=== PATIENT | female | born 1955 | race Caucasian/White ===

== ENCOUNTER → 2017-04-24 | Outpatient (CLI) | payer MEDICARE, MEDICAID ==
--- NOTE | 2017-04-24 17:16 | WOMENS IMAGING REPORT ---
EXAM DESCRIPTION: 3D SCREENING MAMMO BILAT COMPLETED DATE/TIME: 04/24/2017 4:35 pm REASON FOR STUDY: Z12.31, ROUTINE SCREENING MAMMO (3D) Z12.31 ENCNTR SCREEN MAMMOGRAM FOR MALIGNANT NEOPLASM OF DESTINY COMPARISON: Multiple since 2011 TECHNIQUE: Standard craniocaudal and mediolateral oblique views of each breast recorded using digita l acquisition and breast tomosynthesis. LIMITATIONS: None. FINDINGS: Findings present which are benign by mammographic criteria. No suspicious masses, calcifi cations or architectural distortion. Pertinent benign findings: Stable right breast intramammary lymph node, bilateral breast parenchymal and vascular calcifications. Read with the assistance of CAD. [facility] - R2 Cenova Version 1.3 .[facility] Imaging - R2 Cenova Version 1.3 .[facility] Imaging - R2 Cenova Version 2.4 .[facility] [place] - R2 Cenova Version 2.4 .[facility] - R2 Pres[employer] Engineer Version 9.2 Benign mammographic findings may include one or more of the following: Smooth masses, popcorn/rim/co arse calcifications, asymmetries, post-procedure changes, and lesions with long-standing stability. IMPRESSION: BENIGN MAMMOGRAPHIC FINDINGS. BIRADS 2 BREAST DENSITY: b. There are scattered areas of fibroglandular density. BIRAD: 2 BENIGN FINDING(S) RECOMMENDATION: RECOMMENDATION: ROUTINE SCREENING COMMENT: The patient has been notified of the results by letter per SA requirements. Additional no tification policies are in place for contacting patient with suspicious or incomplete findings. Quality ID #[id number]: The [employer] recommends an annual screening mammogram for women aged 40 years or over. This facility utilizes a reminder system to ensure that all patients receive reminder letters, and/or direct phone calls for appointments. This includes reminders for routine scr eening mammograms, diagnostic mammograms, or other Breast Imaging Interventions when appropriate. Th is patient will be placed in the appropriate reminder system. The [employer] (ACR) has developed recommendations for screening MRI of the breast s in certain patient populations, to be used in conjunction with mammography. Breast MRI surveillanc e may be appropriate for women with more than 20% lifetime risk of developing breast cancer as deter mined by genetic testing, significant family history of the disease, or history of mantle radiation f or Hodgkins Disease. ACR Practice Guidelines 2008. DBT Technology DBT is a type of tomographic mammography. With conventional mammography, overlapping breast tissue ma y make lesions difficult to detect, even with good compression. DBT uses an x-ray tube that rotates a round the breast, taking images at different angles. These images are then combined to create thin sl ices of the breast that the radiologist can view as a 3D reconstruction. The [employer] unit can perform full-field digital mammograms (2D imaging); or DBT (3D imaging); or both, in a combination mode that quickly performs both the mammogram and the tomosynthesis scan while the breast is still compressed. PQRS 6045F: Fluoroscopic imaging is not utilized for breast tomosynthesis. TECHNICAL DOCUMENTATION: FINDING NUMBER: (1) ASSESSMENT: (1) JOB ID: [id number] [employer]- All Rights Reserved
== END ==
LOC: WI 13:30
PROVIDERS: ATTEND Physician Assistant
DX: Z12.31 Encounter for screening mammogram for malignant neoplasm of breast (principal)
CPT/HCPCS: 77063; G0202; 77067

== ENCOUNTER → 2018-04-24 | Outpatient (CLI) | payer MEDICARE, MEDICAID ==
--- NOTE | 2018-04-24 10:23 | WOMENS IMAGING REPORT ---
EXAM DESCRIPTION: 3D SCREENING MAMMO BILAT COMPLETED DATE/TIME: 04/24/2018 10:08 am REASON FOR STUDY: SCREENING MAMMO Z12.31 ENCNTR SCREEN MAMMOGRAM FOR MALIGNANT NEOPLASM OF DESTINY COMPARISON: Multiple since 2011 TECHNIQUE: Standard craniocaudal and mediolateral oblique views of each breast recorded using digita l acquisition and breast tomosynthesis. LIMITATIONS: None. FINDINGS: No masses, calcifications or architectural distortion. No areas of suspicion. Read with the assistance of CAD. .[facility] - R2 Cenova Version 1.3 .[facility] Imaging - R2 Cenova Version 1.3 .[facility] Imaging - R2 Cenova Version 2.4 .[facility] [place] R2 Cenova Version 2.4 .[facility] - R2 [employer] Supervisor Version 9.2 IMPRESSION: NORMAL MAMMOGRAM. BIRADS 1. BREAST DENSITY: a. The breasts are almost entirely fatty. BIRAD: 1 NEGATIVE RECOMMENDATION: ROUTINE SCREENING Please continue yearly bilateral screening mammography/tomosynthesis in April 2019 COMMENT: The patient has been notified of the results by letter per MQSA requirements. Additional no tification policies are in place for contacting patient with suspicious or incomplete findings. Quality ID #[id number]: The [employer] recommends an annual screening mammogram for women aged 40 years or over. This facility utilizes a reminder system to ensure that all patients receive reminder letters, and/or direct phone calls for appointments. This includes reminders for routine scr eening mammograms, diagnostic mammograms, or other Breast Imaging Interventions when appropriate. Th is patient will be placed in the appropriate reminder system. The [employer] (ACR) has developed recommendations for screening MRI of the breast s in certain patient populations, to be used in conjunction with mammography. Breast MRI surveillanc e may be appropriate for women with more than 20% lifetime risk of developing breast cancer as deter mined by genetic testing, significant family history of the disease, or history of mantle radiation f or Hodgkins Disease. ACR Practice Guidelines 2008. DBT Technology DBT is a type of tomographic mammography. With conventional mammography, overlapping breast tissue ma y make lesions difficult to detect, even with good compression. DBT uses an x-ray tube that rotates a round the breast, taking images at different angles. These images are then combined to create thin sl ices of the breast that the radiologist can view as a 3D reconstruction. The [employer] unit can perform full-field digital mammograms (2D imaging); or DBT (3D imaging); or both, in a combination mode that quickly performs both the mammogram and the tomosynthesis scan while the breast is still compressed. PQRS 6045F: Fluoroscopic imaging is not utilized for breast tomosynthesis. TECHNICAL DOCUMENTATION: FINDING NUMBER: (1) ASSESSMENT: (1) JOB ID: [id number] [email or web address]- All Rights Reserved Reading location - IP/workstation name: [email or web address]
== END ==
LOC: WI 10:20
PROVIDERS: ATTEND Physician Assistant
DX: Z12.31 Encounter for screening mammogram for malignant neoplasm of breast (principal)
CPT/HCPCS: 77063; 77067

== ENCOUNTER 2018-06-14 20:25 | Emergency (ER) | payer MEDICARE, MEDICAID ==
[2018-06-14] MEDS ORDERED: DIPHENHYDRAMINE HCL 50 MG/ML VIAL IV ONE (22:31)
[2018-06-14 22:58] LABS: ABSOLUTE BASOPHILS # (AUTO) 0.1 10^3/uL (0.0-0.2); ABSOLUTE LYMPHOCYTES (AUTO) 3.3 10^3/uL (0.5-4.7); ABSOLUTE MONOCYTES (AUTO) 0.6 10^3/uL (0.1-1.4); ABSOLUTE NEUT (AUTO) 5.4 10^3/uL (1.7-8.2); BASOPHILS % (AUTO) 0.7 % (0-2); EOSINOPHILS % (AUTO) 0.2 % (0-6); HEMATOCRIT 39.3 % (36.0-47.0); HEMOGLOBIN 13.3 g/dL (12.0-15.5); LYMPHOCYTES % (AUTO) 34.8 % (13-45); MEAN CORPUSCULAR HEMOGLOBIN 29.4 pg (27.0-33.4); MEAN CORPUSCULAR HGB CONC 33.8 g/dL (32.0-36.0); MEAN CORPUSCULAR VOLUME 87 fl (80-97); MONOCYTES % (AUTO) 6.5 % (3-13); PLATELET COUNT 316 10^3/uL (150-450); RED BLOOD COUNT 4.51 10^6/uL (3.72-5.28); RED CELL DISTRIBUTION WIDTH 13.8 % (11.5-14.0); SEGMENTED NEUTROPHILS % (AUTO) 57.8 % (42-78); TOTAL CELLS COUNTED % (AUTO) 100 %; WHITE BLOOD COUNT 9.4 10^3/uL (4.0-10.5)
--- NOTE | 2018-06-14 23:06 | ER Document Report ---
ED General - General TRAVEL OUTSIDE OF THE [place] IN LAST 30 DAYS: No <ANUP HERNANDEZ - Last Filed: 06/15/18 04:04> <EDUARDO WATERS - Last Filed: 06/15/18 09:59> <ERICK RAMÍREZ - Last Filed: 06/15/18 10:57> - General Chief Complaint: Other Stated Complaint: ANXIETY Time Seen by Provider: 06/14/18 22:25 Notes: Patient is a 63-year-old female who presents with complaint of feeling very anxious and agitated. She says that she is shaking and feels as if there is bugs crawling underneath her skin. She said that she was on risperidone and that was stopped on March 12 and she was started on new medication called Vraylar. Furthermore was not helping and therefore she was placed back on risperidone on March 28. She says since then she has had gradually worsening anxiety and feels as if her muscles will not stay still and feels very agitated. She is followed by a psychiatrist. She was also referred to her neurologist who said this most likely is really related to her psychiatric medications. She came to the ER but she says her symptoms get worse and she needs help. No fevers. No recent infections. No trauma. No difficulty breathing or swallowing. No other complaints at this time. (ANUP HERNANDEZ) - Related Data Allergies/Adverse Reactions: clonazepam [From Klonopin] Allergy (Verified 06/14/18 20:29) haloperidol [From Haldol] Allergy (Verified 06/14/18 20:29) haloperidol lactate [From Haldol] Allergy (Verified 06/14/18 20:29) quetiapine [From Seroquel] Allergy (Verified 06/14/18 20:29) topiramate [From Topamax] Allergy (Verified 06/14/18 20:29) ziprasidone HCl [From Geodon] Allergy (Verified 06/14/18 20:29) ziprasidone mesylate [From Geodon] Allergy (Verified 06/14/18 20:29) Past Medical History - Social History Smoking Status: Never Smoker Frequency of alcohol use: None Drug Abuse: None Family History: Reviewed & Not Pertinent Patient has suicidal ideation: No Patient has homicidal ideation: No - Past Medical History Cardiac Medical History: Reports: Hx Hypercholesterolemia Renal/ Medical History: Denies: Hx Peritoneal Dialysis GI Medical History: Reports: Hx Irritable Bowel, Hx Colonoscopy Psychiatric Medical History: Reports: Hx Bipolar Disorder, Hx Schizoaffective Disorder, Hx Schizophrenia Past Surgical History: Reports: Hx Cholecystectomy, Hx Hysterectomy - Immunizations Hx Diphtheria, Pertussis, Tetanus Vaccination: Yes <ANUP HERNANDEZ - Last Filed: 06/15/18 04:04> Review of Systems <ANUP HERNANDEZ - Last Filed: 06/15/18 04:04> <EDUARDO WATERS - Last Filed: 06/15/18 09:59> <ERICK RAMÍREZ - Last Filed: 06/15/18 10:57> - Review of Systems Notes: My Normal Review Basic REVIEW OF SYSTEMS: CONSTITUTIONAL : Denies fever, chills, or sweats. Denies recent illness. EENT: Denies eye, ear, throat, or mouth pain or symptoms. Denies nasal or sinus congestion. CARDIOVASCULAR: Denies chest pain. RESPIRATORY: Denies cough, cold, or chest congestion. Denies shortness of breath, difficulty breathing, or wheezing. GASTROINTESTINAL: Denies abdominal pain. Denies nausea, vomiting, or diarrhea. Denies constipation. Last BM: GENITOURINARY: Denies difficulty urinating, painful urination, burning, frequency, or blood in urine. MUSCULOSKELETAL: Feels as if her muscles are twitching. SKIN: Denies rash or skin lesions. NEUROLOGICAL: Denies altered mental status or loss of consciousness. Denies headache. Denies weakness or paralysis or loss of use of either side. Denies problems with gait or speech. Denies sensory or motor loss. PSYCHIATRIC: Society ALL OTHER SYSTEMS REVIEWED AND NEGATIVE. (ANUP HERNANDEZ) Physical Exam <ANUP HERNANDEZ - Last Filed: 06/15/18 04:04> <EDUARDO WATERS - Last Filed: 06/15/18 09:59> <ERICK RAMÍREZ - Last Filed: 06/15/18 10:57> - Vital signs Vitals: Temp Pulse Resp BP 98.2 F 98 16 178/98 H 06/14/18 20:41 06/14/18 20:41 06/14/18 20:41 06/14/18 20:41 - Notes Notes: General Appearance: Well nourished, alert, cooperative, no acute distress, no obvious discomfort. On exam patient is very anxious. She cannot sit still. She is constantly moving around in the bed. Vitals: reviewed, See vital signs table. Head: no swelling or tenderness to the head Eyes: PERRL, EOMI, Conjuctiva clear Mouth: No decreasd moisture Throat: No tonsillar inflammation, No airway obstruction, No lymphadenopathy Neck: Supple, no neck tenderness, No thyromegaly Lungs: No wheezing, No rales, No rhonci, No accessory muscle use, good air exchange bilaterally. Heart: Normal rate, Regular rythm, No murmur, no rub Abdomen: Normal BS, soft, No rigidity, No abdominal tenderness, No guarding, no rebound, Extremities: strength 5/5 in all extremities, good pulses in all extremities, no swelling or tenderness in the extremities, no edema. Skin: warm, dry, appropriate color, no rash Neuro: speech clear, oriented x 3, normal affect, responds appropriately to questions. (ANUP HERNANDEZ) Course - Laboratory Result Diagrams: 06/14/18 22:46 06/14/18 22:46 <ANUP HERNANDEZ - Last Filed: 06/15/18 04:04> - Laboratory Result Diagrams: 06/14/18 22:46 06/14/18 22:46 <EDUARDO WATERS - Last Filed: 06/15/18 09:59> - Laboratory Result Diagrams: 06/14/18 22:46 06/14/18 22:46 <ERICK RAMÍREZ - Last Filed: 06/15/18 10:57> - Re-evaluation Re-evalutation: 06/15/18 01:00 Patient is no longer scratching and and constantly moving as she was initially. Her anxiety seems to be decreased some but she still is fairly anxious and saying she still having some chest pressure. Initial EKG is okay. I will order troponin I suspect the pressure is probably related to her anxiety as she says it all started with a panic attack earlier today. I was on her dose of Klonopin but sent her allergy list. Patient has multiple medications or allergy list and says that she is unsure if she actually really is allergic to Klonopin or not. She does not remember what type of reaction she had to. We will give her small dose of lorazepam and monitor her closely. 06/15/18 04:07 Patient is medically stable for psychiatric evaluation. I suspect that a lot of her symptoms could be related to the risperidone. A lot of improved with the Benadryl. She still very anxious and I think she still has a high anxiety anxiety component to what is going on. Not suicidal homicidal. She is voluntary to speak with the health this morning. (ANUP HERNANDEZ) - Vital Signs Vital signs: Temp Pulse Resp BP Pulse Ox 97.8 F 70 16 122/63 98 06/15/18 06:07 06/15/18 06:07 06/14/18 20:41 06/15/18 06:07 06/15/18 06:07 - Laboratory Laboratory results interpreted by me: 06/14/18 06/14/18 22:46 23:18 Chloride 97 L Total Protein 8.3 H Ur Leukocyte Esterase LARGE H Salicylates < 1.0 L Acetaminophen < 10 L - EKG Interpretation by Me Additional EKG results interpreted by me: 06/14/18 23:05 EKG is reviewed and interpreted by me. EKG shows sinus rhythm with rate of [address] segment elevation. Minimal ST segment depression in lead III which is unchanged comparison to previous EKG from April 04, 2016. FL interval, QRS duration, QTc intervals are within normal range. (ANUP HERNANDEZ) Discharge <ANUP HERNANDEZ - Last Filed: 06/15/18 04:04> <EDUARDO WATERS - Last Filed: 06/15/18 09:59> <ERICK RAMÍREZ - Last Filed: 06/15/18 10:57> - Discharge Clinical Impression: Anxiety Medication reaction Qualifiers: Encounter type: initial encounter Qualified Code(s): T50.905A - Adverse effect of unspecified drugs, medicaments and biological substances, initial encounter Condition: Stable Disposition: HOME, SELF-CARE Additional Instructions: Medication Side Effects Your unpleasant symptoms are likely due to a drug you're taking. These symptoms are a common side effect of the medicine. It's not a true allergy. We stop any unnecessary drugs when bothersome side effects occur. Sometimes we'll substitute a different type of drug. In other cases, we must continue the drug. If so, we try to find a way to decrease the side effects. Many side effects decrease with time. Call us if the symptoms don't go away. Anxiety (may be direct side effect from medication reaction) The physician feels that some of your health problems are being caused by anxiety. Anxiety affects your health in many ways. Anxiety alone can cause palpitations, sweats, chest pains, abdominal pains, shortness of breath, and headaches. It contributes to ulcer disease, high blood pressure, irritable bowel syndrome, and has been shown to cause flare-ups of many other diseases. Anxiety is not a simple disorder to treat. If the anxiety is due to recent life stresses, you may simply need time to "work through" the changes. If the anxiety is due to an underlying unhappiness with yourself or due to psychiatric disturbance, professional help will be needed. Your physician can refer you for further help if needed. Anti-anxiety medication is occasionally given if the stress is acute or if you are having trouble sleeping. Chronic or frequent use of these medications is not a good idea because the body becomes reliant on it, preventing you from dealing with life's normal stresses. Follow-up: You have been instructed to follow up with [facility] ([facility]) as a walk in the first of the week (Saturday or Saturday06/17/18 if closed due to Holiday). You have been provided the outpatient resource sheet which highlighted [facility] mobile crisis for talk therapy and crisis, as well as [facility] which documented you to do a walk in the first of the week. If your symptoms continue or worsen inform your provider, utilize mobile crisis or return to the emergency department. Prescriptions: Benztropine Mesylate [Cogentin 1 mg Tablet] 1 mg PO BID #14 tablet Risperidone [Risperdal 1 mg Tablet] 1 mg PO BID #14 tablet Referrals: EDDI HUSTON PA-C [Primary Care Provider] - Follow up as needed [facility] [Outside] - Follow up as needed [facility] [Outside] - 06/16/18
[2018-06-14 23:28] LABS: ALANINE AMINOTRANSFERASE 21 U/L (9-52); ALBUMIN 4.8 g/dL (3.5-5.0); ALKALINE PHOSPHATASE 69 U/L (38-126); ANION GAP 14 (5-19); ASPARTATE AMINO TRANSFERASE 17 U/L (14-36); BILIRUBIN,DIRECT 0.3 mg/dL (0.0-0.4); BILIRUBIN,TOTAL 0.5 mg/dL (0.2-1.3); BLOOD UREA NITROGEN 7 mg/dL (7-20); CARBON DIOXIDE 27 mmol/L (22-30); CHLORIDE 97 mmol/L (98-107); CREATINE KINASE 89 U/L (30-135); GLUCOSE 106 mg/dL (75-110); POTASSIUM 3.7 mmol/L (3.6-5.0); SODIUM 137.7 mmol/L (137-145); TOTAL PROTEIN 8.3 g/dL (6.3-8.2)
[2018-06-14 23:29] LABS: ACETAMINOPHEN < 10 ug/mL (10-30); ALCOHOL < 10 mg/dL (NONE DETECTED); SALICYLATE < 1.0 mg/dL (2.0-20.0)
[2018-06-14 23:58] LABS: APPEARANCE,URINE CLEAR; BILIRUBIN,URINE NEGATIVE (NEGATIVE); COLOR,URINE STRAW; GLUCOSE, URINE NEGATIVE (NEGATIVE); KETONES,URINE NEGATIVE (NEGATIVE); LEUKOCYTE ESTERASE,URINE LARGE (NEGATIVE); NITRITE,URINE NEGATIVE (NEGATIVE); PROTEIN,URINE NEGATIVE (NEGATIVE); URINE SPECIFIC GRAVITY 1.005; UROBILINOGEN,URINE NEGATIVE mg/dL (<2.0)
[2018-06-15 00:30] LABS: URINE AMPHETAMINES SCREEN NEGATIVE; URINE BARBITURATES SCREEN NEGATIVE; URINE BENZODIAZEPINES SCREEN NEGATIVE; URINE COCAINE SCREEN NEGATIVE; URINE MARIJUANA (THC) SCREEN NEGATIVE; URINE METHADONE SCREEN NEGATIVE; URINE PHENCYCLIDINE SCREEN NEGATIVE
[2018-06-15] MEDS ORDERED: LORAZEPAM 0.5 MG TABLET PO ONE (00:57)
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
--- NOTE | 2018-06-15 09:41 | EKG REPORT ---
SEVERITY:- NORMAL ECG - SINUS RHYTHM : Confirmed by: Glynn Handley MD 15-Jun-2018 09:40:30
[2018-06-15 11:00] VITALS: BP 151/84
--- NOTE | 2018-06-15 11:02 | ER Document Report ---
Doctor's Note Notes: 06/15/18 11:01 Rounds: Chart reviewed and patient interviewed. Patient's being evaluated for anxiety. Vital signs of all been normal. Lab studies are all normal except for a possible UTI on her urinalysis. A culture of her urine was ordered. Patient does not have any UTI symptoms. Patient appears to be medically stable for transfer or discharge. Estela Bagley MD
== END 2018-06-15 11:06 | disposition home or self-care (01) ==
LOC: ER 20:25
DX: T50.905A Adverse effect of unspecified drugs, medicaments and biological substances, initial encounter (principal); F41.9 Anxiety disorder, unspecified; R45.1 Restlessness and agitation; Z79.899 Other long term (current) drug therapy
CPT/HCPCS: 93005; 99285; 96374; 36415; 87086; 80307 ×4; 82550; 85025; 80053; 81001; 84484; 93010; J1200; A9270

== ENCOUNTER → 2019-03-04 | Outpatient (CLI) | payer MEDICARE, MEDICAID ==
--- NOTE | 2019-03-04 08:49 | RADIOLOGY REPORT (SQ) ---
EXAM DESCRIPTION: U/S ABDOMEN COMPLETE W/O DOP COMPLETED DATE/TIME: 03/04/2019 7:04 am REASON FOR STUDY: EPIGASTRIC PAIN (R10.13), ABD TENDERNESS (R10.816) R10.13 EPIGASTRIC PAIN R10.816 EPIGASTRIC ABDOMINAL TENDERNESS COMPARISON: None. TECHNIQUE: Dynamic and static grayscale images acquired of the abdomen and recorded on PACS. Additio nal selected color Doppler and spectral images recorded. Note: Study does not meet criteria for complete doppler/duplex scan LIMITATIONS: None. FINDINGS: PANCREAS: No masses. Visualized pancreatic duct normal caliber. LIVER: The liver is mildly echogenic consistent with fatty infiltration. LIVER VASCULATURE: Normal directional flow of the main portal vein and hepatic veins. GALLBLADDER: Surgically absent. ULTRASOUND-DETECTED JOYCE'S SIGN: Negative. INTRAHEPATIC DUCTS AND COMMON DUCT: CBD and intrahepatic ducts normal caliber. No filling defects. INFERIOR VENA CAVA: Normal flow. AORTA: No aneurysm. RIGHT KIDNEY: Normal size. Normal echogenicity. No solid or suspicious masses. No hydronephros is. No calcifications. LEFT KIDNEY: Normal size. Normal echogenicity. No solid or suspicious masses. No hydronephrosi s. No calcifications. SPLEEN: Normal size. No solid masses. PERITONEAL AND PLEURAL SPACES: No ascites or effusions. OTHER: No other significant finding. IMPRESSION: Mildly echogenic liver consistent with fatty infiltration. Prior cholecystectomy. TECHNICAL DOCUMENTATION: JOB ID: [id number] [employer]- All Rights Reserved Reading location - IP/workstation name: [email or web address]
== END ==
LOC: RAD 06:00
PROVIDERS: ATTEND Internal Medicine Gastroenterology
DX: R10.13 Epigastric pain (principal); R10.816 Epigastric abdominal tenderness
CPT/HCPCS: 76700

== ENCOUNTER 2019-03-05 19:35 | Emergency (ER) | payer MEDICARE, MEDICAID ==
[2019-03-05] MEDS ORDERED: ONDANSETRON HCL INJ/PF 4 MG/2 ML SDV IV ONE (21:00)
--- NOTE | 2019-03-05 21:02 | ER Document Report ---
ED Medical Screen (RME) - General Chief Complaint: Epigastric Pain Stated Complaint: RIGHT SIDED STOMACH PAIN Time Seen by Provider: 03/05/19 20:57 Primary Care Provider: BARBARA SONI MD [Primary Care Provider] - Follow up as needed Information source: Patient Notes: Patient reports a 2-week history of generalized abdominal pain that has worsened to the right lower quadrant over the past week. Patient states pain does radiate from the right lower quadrant through to her back. Patient denies any fever or urinary symptoms. Patient reports nausea with vomiting yesterday although no vomiting today. Patient has had diarrhea x4 episodes. Patient states she has chronic daily diarrhea and problems with IBS. Patient reports a 15 pound weight loss over the past month. hx: Hyperlipidemia, anxiety, IBS, schizophrenia, hypertension, cholecystectomy, hysterectomy I have greeted and performed a rapid initial assessment of this patient. A comprehensive ED assessment and evaluation of the patient, analysis of test results and completion of the medical decision making process will be conducted by additional ED providers. TRAVEL OUTSIDE OF THE [place] IN LAST 30 DAYS: No - Related Data Allergies/Adverse Reactions: clonazepam [From Klonopin] Allergy (Verified 03/05/19 19:39) haloperidol [From Haldol] Allergy (Verified 03/05/19 19:39) haloperidol lactate [From Haldol] Allergy (Verified 03/05/19 19:39) quetiapine [From Seroquel] Allergy (Verified 03/05/19 19:39) topiramate [From Topamax] Allergy (Verified 03/05/19 19:39) ziprasidone HCl [From Geodon] Allergy (Verified 03/05/19 19:39) ziprasidone mesylate [From Geodon] Allergy (Verified 03/05/19 19:39) cariprazine [From Vraylar] Adverse Reaction (Verified 03/05/19 19:39) Past Medical History - Past Medical History Cardiac Medical History: Reports: Hx Hypercholesterolemia Renal/ Medical History: Denies: Hx Peritoneal Dialysis GI Medical History: Reports: Hx Irritable Bowel, Hx Colonoscopy Psychiatric Medical History: Reports: Hx Bipolar Disorder, Hx Depression, Hx Schizoaffective Disorder, Hx Schizophrenia Past Surgical History: Reports: Hx Cholecystectomy, Hx Hysterectomy - Immunizations Hx Diphtheria, Pertussis, Tetanus Vaccination: Yes Physical Exam - Vital signs Vitals: Temp Pulse Resp BP Pulse Ox 98.7 F 110 H 20 181/85 H 99 03/05/19 19:52 03/05/19 19:52 03/05/19 19:52 03/05/19 19:52 03/05/19 19:52 - Abdominal Inspection: Morbidly Obese Tenderness: Tender - Generalized abdominal tenderness, worse to right lower quadrant Course - Vital Signs Vital signs: Temp Pulse Resp BP Pulse Ox 98.7 F 110 H 20 181/85 H 99 03/05/19 19:52 03/05/19 19:52 03/05/19 19:52 03/05/19 19:52 03/05/19 19:52 Doctor's Discharge - Discharge Referrals: BARBARA SONI MD [Primary Care Provider] - Follow up as needed
[2019-03-05 22:17] LABS: ABSOLUTE BASOPHILS # (AUTO) 0.1 10^3/uL (0.0-0.2); ABSOLUTE EOSINOPHILS # (AUTO) 0.1 10^3/uL (0.0-0.6); ABSOLUTE LYMPHOCYTES (AUTO) 4.4 10^3/uL (0.5-4.7); ABSOLUTE MONOCYTES (AUTO) 0.9 10^3/uL (0.1-1.4); ABSOLUTE NEUT (AUTO) 6.1 10^3/uL (1.7-8.2); BASOPHILS % (AUTO) 0.7 % (0-2); EOSINOPHILS % (AUTO) 0.8 % (0-6); HEMATOCRIT 38.8 % (36.0-47.0); MEAN CORPUSCULAR HEMOGLOBIN 29.1 pg (27.0-33.4); MEAN CORPUSCULAR HGB CONC 33.4 g/dL (32.0-36.0); MEAN CORPUSCULAR VOLUME 87 fl (80-97); MONOCYTES % (AUTO) 7.7 % (3-13); PLATELET COUNT 346 10^3/uL (150-450); RED BLOOD COUNT 4.46 10^6/uL (3.72-5.28); RED CELL DISTRIBUTION WIDTH 13.5 % (11.5-14.0); SEGMENTED NEUTROPHILS % (AUTO) 52.8 % (42-78); TOTAL CELLS COUNTED % (AUTO) 100 %; WHITE BLOOD COUNT 11.5 10^3/uL (4.0-10.5)
[2019-03-05 22:37] LABS: ALANINE AMINOTRANSFERASE 20 U/L (9-52); ALBUMIN 4.7 g/dL (3.5-5.0); ALKALINE PHOSPHATASE 77 U/L (38-126); ANION GAP 15 (5-19); ASPARTATE AMINO TRANSFERASE 20 U/L (14-36); BILIRUBIN,DIRECT 0.2 mg/dL (0.0-0.4); BILIRUBIN,TOTAL 0.4 mg/dL (0.2-1.3); BLOOD UREA NITROGEN 5 mg/dL (7-20); CALCIUM 10.4 mg/dL (8.4-10.2); CARBON DIOXIDE 27 mmol/L (22-30); CHLORIDE 93 mmol/L (98-107); GLUCOSE 107 mg/dL (75-110); LIPASE 54.9 U/L (23-300); POTASSIUM 4.7 mmol/L (3.6-5.0); SODIUM 134.8 mmol/L (137-145); TOTAL PROTEIN 7.9 g/dL (6.3-8.2)
[2019-03-06] MEDS ORDERED: NORMAL SALINE 1000 ML 1,000 ML IV ONE (00:09)
--- NOTE | 2019-03-06 00:09 | ER Document Report ---
ED General - General Chief Complaint: Epigastric Pain Stated Complaint: RIGHT SIDED STOMACH PAIN Time Seen by Provider: 03/05/19 20:57 Primary Care Provider: BARBARA SONI MD [Primary Care Provider] - Follow up in 3-5 days Notes: Patient is a 63-year-old female that presents to the emergency department for chief complaint of right flank pain. Patient reports she has been having pain in her right flank that radiates towards the right lower quadrant of her abdomen, is been going on on and off over the past month, but really worse over the past 2 days, she is had associated nausea with occasional vomiting. She do es have IBS with diarrhea, and states she is lost 15 pounds over the past 2 months, but this is unrelated, and more severe pain that she is never had related to her IBS. She currently rates her pain as a 5 out of 10 describes as an aching and occasionally stabbing sensation that radiates from the right flank down to the right lower quadrant. Denies prior history of kidney stones, she denies having hematuria, but does admit to having some dysuria and urinary frequency. Denies any fevers, chills, night sweats. Past Medical History: IBS diarrhea type GERD, bipolar disorder Past Surgical History: Hysterectomy, cholecystectomy Social History: Denies current tobacco, alcohol or drug use. Family History: Reviewed and noncontributory for presenting illness Allergies: Reviewed, see documented allergy list. REVIEW OF SYSTEMS: Other than noted above, the 12 point review of systems was reviewed with the patient and were negative, all pertinent findings are included in the HPI. PHYSICAL EXAMINATION: Vital signs reviewed, nursing noted reviewed. GENERAL: Obese female, no acute distress HEAD: Atraumatic, normocephalic. EYES: Eyes appear normal, extraocular movements intact, sclera anicteric, conjunctiva are normal. ENT: nares patent, oropharynx clear without exudates. Moist mucous membranes. NECK: Normal range of motion, supple without lymphadenopathy LUNGS: Breath sounds clear to auscultation bilaterally and equal. No wheezes rales or rhonchi. HEART: Regular rate and rhythm without murmurs ABDOMEN: Soft, right flank and right lower quadrant tenderness to palpation, nor moactive bowel sounds. No rebound, guarding, or rigidity. No masses appreciated. EXTREMITIES: Nontender, good range of motion, no pitting or edema. NEUROLOGICAL: No focal neurological deficits. Moves all extremities spontaneously Motor and sensory grossly intact on exam. PSYCH: Normal mood, normal affect. SKIN: Warm, Dry, normal turgor, no rashes or lesions noted on exposed skin TRAVEL OUTSIDE OF THE [place] IN LAST 30 DAYS: No - Related Data Allergies/Adverse Reactions: clonazepam [From Klonopin] Allergy (Verified 03/05/19 19:39) haloperidol [From Haldol] Allergy (Verified 03/05/19 19:39) haloperidol lactate [From Haldol] Allergy (Verified 03/05/19 19:39) quetiapine [From Seroquel] Allergy (Verified 03/05/19 19:39) topiramate [From Topamax] Allergy (Verified 03/05/19 19:39) ziprasidone HCl [From Geodon] Allergy (Verified 03/05/19 19:39) ziprasidone mesylate [From Geodon] Allergy (Verified 03/05/19 19:39) cariprazine [From Vraylar] Adverse Reaction (Verified 03/05/19 19:39) Past Medical History - General Information source: Patient - Social History Smoking Status: Unknown if Ever Smoked Family History: Reviewed & Not Pertinent Patient has suicidal ideation: No Patient has homicidal ideation: No - Past Medical History Cardiac Medical History: Reports: Hx Hypercholesterolemia Renal/ Medical History: Denies: Hx Peritoneal Dialysis GI Medical History: Reports: Hx Irritable Bowel, Hx Colonoscopy Psychiatric Medical History: Reports: Hx Bipolar Disorder, Hx Depression, Hx Schizoaffective Disorder, Hx Schizophrenia Past Surgical History: Reports: Hx Cholecystectomy, Hx Hysterectomy - Immunizations Hx Diphtheria, Pertussis, Tetanus Vaccination: Yes Physical Exam - Vital signs Vitals: Temp Pulse Resp BP Pulse Ox 98.7 F 110 H 20 181/85 H 99 03/05/19 19:52 03/05/19 19:52 03/05/19 19:52 03/05/19 19:52 03/05/19 19:52 Course - Re-evaluation Re-evalutation: Patient seen and examined vital signs reviewed. Laboratory data and/or imaging were ordered as appropriate for the patient's presenting symptoms and complaint, with consideration of any critical or life threatening conditions that may be associated with their obtained history and exam as noted above. Patient was treated with Tylenol for pain, and given IV fluids and Zofran Results were reviewed when available and demonstrated CT imaging was negative, appendix was visualized and appeared unremarkable, she was noted to have a mild leukocytosis, her UA was concerning for urinary tract infection, clinically the patient was spitting with pyelonephritis, she was afebrile, but mildly tachycardic on presentation. The patient was re-evaluated and was improved, after treatment, she is given a single dose of IV Rocephin 1 g, and will be discharged home on Keflex 500 mg 3 times daily, and advised follow-up with her primary care, she is also advised if symptoms worsen to return to the emergency department. Evaluation was most consistent with acute pyelonephritis Results were discussed with the patient at this point, after careful consideration I feel that that patient can be discharged from the emergency department, the patient was educated treatments and reasons to return to the emergency department based on their presumed diagnosis as noted above, they were advised to followup with a primary care physician in 2-3 days. Patient was agreeable to plan of care. *Note is created using voice recognition software and may contain spelling, syntax or grammatical errors. Laboratory 03/05/19 03/05/19 03/06/19 21:46 21:46 00:30 WBC 11.5 H RBC 4.46 Hgb 13.0 Hct 38.8 MCV 87 MCH 29.1 MCHC 33.4 RDW 13.5 Plt Count 346 Seg Neutrophils % 52.8 Lymphocytes % 38.0 Monocytes % 7.7 Eosinophils % 0.8 Basophils % 0.7 Absolute Neutrophils 6.1 Absolute Lymphocytes 4.4 Absolute Monocytes 0.9 Absolute Eosinophils 0.1 Absolute Basophils 0.1 Sodium 134.8 L Potassium 4.7 Chloride 93 L Carbon Dioxide 27 Anion Gap 15 BUN 5 L Creatinine 0.74 Est GFR ( Amer) > 60 Est GFR (Non-Af Amer) > 60 Glucose 107 Calcium 10.4 H Total Bilirubin 0.4 Direct Bilirubin 0.2 Neonat Total Bilirubin Not Reportable Neonat Direct Bilirubin Not Reportable Neonat Indirect Bili Not Reportable AST 20 ALT 20 Alkaline Phosphatase 77 Total Protein 7.9 Albumin 4.7 Lipase 54.9 Urine Color STRAW Urine Appearance CLOUDY Urine pH 6.0 Ur Specific [place] 1.002 Urine Protein NEGATIVE Urine Glucose (UA) NEGATIVE Urine Ketones TRACE H Urine Blood SMALL H Urine Nitrite NEGATIVE Urine Bilirubin NEGATIVE Urine Urobilinogen NEGATIVE Ur Leukocyte Esterase LARGE H Urine WBC (Auto) 68 Urine RBC (Auto) 16 Urine Bacteria (Auto) TRACE Squamous Epi Cells Auto 2 Urine Mucus (Auto) RARE Urine Ascorbic Acid NEGATIVE Abdomen/Pelvis CT 03/06/19 00:08 IMPRESSION: No acute findings. Normal appendix. TECHNICAL DOCUMENTATION: Quality ID # [id number]: Final reports with documentation of one or more dose reduction techniques (e.g., Automated exposure control, adjustment of the mA and/or kV according to patient size, use of iterative reconstruction technique) copyright 2011 [employer]- All Rights Reserved - Vital Signs Vital signs: Temp Pulse Resp BP Pulse Ox 97.8 F 87 20 112/67 97 03/06/19 03:30 03/06/19 03:30 03/06/19 03:30 03/06/19 03:30 03/06/19 03:30 - Laboratory Result Diagrams: 03/05/19 21:46 03/05/19 21:46 Laboratory results interpreted by me: 03/05/19 03/05/19 03/06/19 21:46 21:46 00:30 WBC 11.5 H Sodium 134.8 L Chloride 93 L BUN 5 L Calcium 10.4 H Urine Ketones TRACE H Urine Blood SMALL H Ur Leukocyte Esterase LARGE H - EKG Interpretation by Me Additional EKG results interpreted by me: EKG demonstrates sinus rhythm with a ventricular rate of 74 bpm, normal axis, QTC 426 ms, no evidence of acute ischemia in this EKG, no prior for comparison. Discharge - Discharge Clinical Impression: Pyelonephritis Leukocytosis Qualifiers: Leukocytosis type: unspecified Qualified Code(s): D72.829 - Elevated white blood cell count, unspecified Condition: Stable Disposition: HOME, SELF-CARE Instructions: Pyelonephritis ([facility]) Additional Instructions: Please follow-up with your primary care physician, complete the entire course of antibiotics as prescribed, if your symptoms worsen in any way, you develop fevers, or worsening pain is not controlled, do not hesitate to return to the emergency department. Prescriptions: RX: Cephalexin Monohydrate [Keflex 500 mg Capsule] 500 mg PO TID 7 Days #21 capsule Ondansetron [Zofran Odt 4 mg Tablet] 1 tab PO Q8H PRN #15 tab.rapdis PRN Reason: For Nausea/Vomiting Referrals: BARBARA SONI MD [Primary Care Provider] - Follow up in 3-5 days
[2019-03-06 00:43] LABS: APPEARANCE,URINE CLOUDY; BILIRUBIN,URINE NEGATIVE (NEGATIVE); COLOR,URINE STRAW; GLUCOSE, URINE NEGATIVE (NEGATIVE); KETONES,URINE TRACE mg/dL (NEGATIVE); LEUKOCYTE ESTERASE,URINE LARGE (NEGATIVE); NITRITE,URINE NEGATIVE (NEGATIVE); PROTEIN,URINE NEGATIVE (NEGATIVE); URINE SPECIFIC GRAVITY 1.002; UROBILINOGEN,URINE NEGATIVE mg/dL (<2.0)
[2019-03-06] MEDS ORDERED: CEFTRIAXONE 1 GM/D5W RTU 1 GM/50 ML RTUPB IV ONE (01:55)
[2019-03-06] MEDS ORDERED: ACETAMINOPHEN 325 MG TABLET PO ONE (01:55)
--- NOTE | 2019-03-06 02:08 | RADIOLOGY REPORT (SQ) ---
EXAM DESCRIPTION: CT ABDOMEN PELVIS WITH IV CONTRAST COMPLETED DATE/TME: 03/06/2019 00:08 CLINICAL HISTORY: 63 years, Female, rlq abdominal pain CREAT 0.74 COMPARISON: 07/11/2013 TECHNIQUE: Axial CT images of the abdomen and pelvis were obtained after the administration of IV contrast. DLP [id number] Images stored on PACS. All CT scanners at this facility use dose modulation, iterative reconstruction, and/or weight based dosing when appropriate to reduce radiation dose to as low as reasonably achievable (ALARA). [facility]: Dose Right [facility]: CareDose [facility]: Dose Right [facility]: Teradose 4D [facility]: Smart Elixent LIMITATIONS: None. FINDINGS: The lung bases are clear. The liver contains a subcentimeter hypodensity, which is too small to further characterize. Cholecystectomy. The pancreas, spleen, and adrenal glands are unremarkable. Both kidneys appear unremarkable. No evidence of urolithiasis or hydronephrosis. There is no intraperitoneal free air or fluid. There is no lymphadenopathy. There are mild atherosclerotic calcifications of the abdominal aorta. There is a small hiatal hernia. The small bowel is unremarkable. The appendix is normal. The colon appears unremarkable. Hysterectomy. The urinary bladder is unremarkable. There are no lytic or blastic bone lesions. IMPRESSION: No acute findings. Normal appendix. TECHNICAL DOCUMENTATION: Quality ID # 436: Final reports with documentation of one or more dose reduction techniques (e.g., Automated exposure control, adjustment of the mA and/or kV according to patient size, use of iterative reconstruction technique) copyright 2011 [employer]- All Rights Reserved
[2019-03-06 03:54] VITALS: BP 112/67
--- NOTE | 2019-03-06 22:34 | EKG REPORT ---
SEVERITY:- NORMAL ECG - SINUS RHYTHM : Confirmed by: Gigi Tello 06-Mar-2019 22:32:25
== END 2019-03-06 03:35 | disposition home or self-care (01) ==
LOC: ER 19:35
DX: N12 Tubulo-interstitial nephritis, not specified as acute or chronic (principal); D72.829 Elevated white blood cell count, unspecified; R10.13 Epigastric pain; E78.00 Pure hypercholesterolemia, unspecified; Z90.49 Acquired absence of other specified parts of digestive tract; Z90.710 Acquired absence of both cervix and uterus
CPT/HCPCS: 93005; 99284; 96361; 96365; 36415; 83690; 85025; 80053; 81001; 74177; 93010; A9270; J2405; J7030; J0696

== ENCOUNTER 2019-03-11 08:40 | Emergency (ER) | payer MEDICARE, MEDICAID ==
[2019-03-11] MEDS ORDERED: HYDROXYZINE PAMOATE 25 MG CAPSULE PO ONE (09:38)
--- NOTE | 2019-03-11 09:44 | ER Document Report ---
HPI - HPI Patient complains to provider of: Rash Time Seen by Provider: 03/11/19 09:25 Onset: This morning Onset/Duration: Sudden Pain Level: Denies Context: Patient presents emergency department with rash covering her entire trunk that started this morning at 0400. Patient reports rash is very itchy. Denies new soaps lotions but reports has been taking antibiotics for her kidney infection since last week. Denies other symptoms such as fever vomiting diarrhea. Associated Symptoms: None Exacerbated by: Denies Relieved by: Denies Similar symptoms previously: No Recently seen / treated by doctor: No - REPRODUCTIVE Reproductive: DENIES: : Past Medical History - General Information source: Patient - Social History Smoking Status: Never Smoker Cigarette use (# per day): No Frequency of alcohol use: None Drug Abuse: None Family History: Reviewed & Not Pertinent Patient has suicidal ideation: No Patient has homicidal ideation: No - Past Medical History Cardiac Medical History: Reports: Hx Hypercholesterolemia Renal/ Medical History: Denies: Hx Peritoneal Dialysis GI Medical History: Reports: Hx Irritable Bowel, Hx Colonoscopy Psychiatric Medical History: Reports: Hx Bipolar Disorder, Hx Depression, Hx Schizoaffective Disorder, Hx Schizophrenia Past Surgical History: Reports: Hx Cholecystectomy, Hx Hysterectomy - Immunizations Hx Diphtheria, Pertussis, Tetanus Vaccination: Yes Vertical Provider Document - CONSTITUTIONAL Agree With Documented VS: Yes Exam Limitations: No Limitations General Appearance: WD/WN, No Apparent Distress - INFECTION CONTROL TRAVEL OUTSIDE OF THE [place] IN LAST 30 DAYS: No - HEENT HEENT: Atraumatic, Normocephalic - RESPIRATORY Respiratory: Breath Sounds Normal, No Respiratory Distress - CARDIOVASCULAR Cardiovascular: Regular Rate - GI/ABDOMEN Gastrointestinal: Abdomen Soft - MUSCULOSKELETAL/EXTREMETIES Musculoskeletal/Extremeties: MAEW, FROM - NEURO Level of Consciousness: Awake, Alert Motor/Sensory: No Motor Deficit - DERM Integumentary: Rash - generalized erythematous macules, no pustules no warmth no tenderness Course - Vital Signs Vital signs: Temp Pulse Resp BP Pulse Ox 97.7 F 86 16 180/84 H 97 03/11/19 08:46 03/11/19 08:46 03/11/19 08:46 03/11/19 08:46 03/11/19 08:46 Discharge - Discharge Clinical Impression: Allergic reaction caused by a drug Condition: Stable Disposition: HOME, SELF-CARE Instructions: Acute Allergic Reaction ([facility]), Antihistamines ([facility]) Additional Instructions: *You have been treated for an allergic reaction *Stop your antibiotic *Take antihistamine medication as prescribed *Monitor your skin for worsening rash *Avoid hot showers, take cool showers to calm the itch *Follow up with a primary care provider within one week for recheck *Return to ED for worsening condition, concerns, trouble breathing, changes, needs Monitor your blood pressure. Your blood pressure was elevated today. This may be because you were anxious, in pain or because you need medication. It is important to follow up with your primary care provider for full evaluation. Prescriptions: Hydroxyzine Pamoate [Vistaril 25 mg Capsule] 25 mg PO TID #15 capsule Forms: Elevated Blood Pressure Referrals: EDDI HUSTON PA-C [Primary Care Provider] - Follow up in 3-5 days
[2019-03-11 10:00] VITALS: BP 167/89
== END 2019-03-11 09:59 | disposition home or self-care (01) ==
LOC: ER 08:40
DX: L27.0 Generalized skin eruption due to drugs and medicaments taken internally (principal); T36.95XA Adverse effect of unspecified systemic antibiotic, initial encounter
CPT/HCPCS: 99282; A9270

== ENCOUNTER → 2019-07-29 | Outpatient (CLI) | payer MEDICARE, MEDICAID ==
--- NOTE | 2019-07-29 10:39 | WOMENS IMAGING REPORT ---
EXAM DESCRIPTION: 3D SCREENING MAMMO BILAT COMPLETED DATE/TIME: 07/29/2019 9:42 am REASON FOR STUDY: Z12.31 ENCOUNTER FOR SCREENING MAMMOGRAM FOR MALIGNANT NEOPLASM OF BREAST Z12.31 ENCNTR SCREEN MAMMOGRAM FOR MALIGNANT NEOPLASM OF DESTINY COMPARISON: 04/24/2018 and 04/24/2017. EXAM PARAMETERS: Views: Standard craniocaudal and mediolateral oblique views of each breast recorded using digital acquisition and breast tomosynthesis. Read with the assistance of CAD. .[facility] - R2 [employer] Version 9.2 LIMITATIONS: None. FINDINGS: No suspicious masses, suspicious calcifications or architectural distortion. No areas of c oncern. IMPRESSION: NEGATIVE MAMMOGRAM. BIRADS 1. BREAST DENSITY: a. The breasts are almost entirely fatty. BIRAD: ASSESSMENT: 1 NEGATIVE RECOMMENDATION: ROUTINE SCREENING COMMENT: The patient has been notified of the results by letter per MQSA requirements. Additional no tification policies are in place for contacting patient with suspicious or incomplete findings. Quality ID #[id number]: The [employer] recommends an annual screening mammogram for women aged 40 years or over. This facility utilizes a reminder system to ensure that all patients receive reminder letters, and/or direct phone calls for appointments. This includes reminders for routine scr eening mammograms, diagnostic mammograms, or other Breast Imaging Interventions when appropriate. Th is patient will be placed in the appropriate reminder system. TECHNICAL DOCUMENTATION: FINDING NUMBER: (1) ASSESSMENT: (1) JOB ID: [id number] [employer]- All Rights Reserved Reading location - IP/workstation name: IB[facility]-RR
== END ==
LOC: WI 09:14
PROVIDERS: ATTEND Physician Assistant
DX: Z12.31 Encounter for screening mammogram for malignant neoplasm of breast (principal)
CPT/HCPCS: 77063; 77067

== ENCOUNTER 2019-10-31 03:42 | Observation (INO) | payer MEDICARE, MEDICAID ==
[2019-10-31] MEDS ORDERED: ONDANSETRON HCL INJ/PF 4 MG/2 ML SDV IV ONE ×2 (04:01→07:37)
[2019-10-31] MEDS ORDERED: HYDROMORPHONE HCL INJ/PF 2 MG/ML AMPULE IV ONE (04:02)
[2019-10-31] MEDS ORDERED: NORMAL SALINE 1000 ML 1,000 ML IV ONE (04:02)
[2019-10-31 04:11] LABS: ABSOLUTE BASOPHILS # (AUTO) 0.1 10^3/uL (0.0-0.2); ABSOLUTE EOSINOPHILS # (AUTO) 0.1 10^3/uL (0.0-0.6); ABSOLUTE LYMPHOCYTES (AUTO) 1.4 10^3/uL (0.5-4.7); ABSOLUTE MONOCYTES (AUTO) 0.6 10^3/uL (0.1-1.4); ABSOLUTE NEUT (AUTO) 7.8 10^3/uL (1.7-8.2); EOSINOPHILS % (AUTO) 0.6 % (0-6); HEMATOCRIT 38.1 % (36.0-47.0); HEMOGLOBIN 12.7 g/dL (12.0-15.5); LYMPHOCYTES % (AUTO) 14.4 % (13-45); MEAN CORPUSCULAR HEMOGLOBIN 29.3 pg (27.0-33.4); MEAN CORPUSCULAR HGB CONC 33.5 g/dL (32.0-36.0); MEAN CORPUSCULAR VOLUME 88 fl (80-97); MONOCYTES % (AUTO) 5.8 % (3-13); PLATELET COUNT 310 10^3/uL (150-450); RED BLOOD COUNT 4.35 10^6/uL (3.72-5.28); RED CELL DISTRIBUTION WIDTH 14.5 % (11.5-14.0); SEGMENTED NEUTROPHILS % (AUTO) 78.2 % (42-78); TOTAL CELLS COUNTED % (AUTO) 100 %
--- NOTE | 2019-10-31 04:16 | ER Document Report ---
ED General - General Chief Complaint: Abdominal Pain Stated Complaint: NAUSEA/VOMITING Time Seen by Provider: 10/31/19 03:47 Primary Care Provider: EDDI HUSTON PA-C [Primary Care Provider] - Follow up as needed Notes: 64-year-old female presents the emergency department complaining of sudden onset of vomiting as well as right lower quadrant abdominal pain this evening. States that it woke her up from a sound sleep and she vomited green liquid multiple times. Denies any blood, denies any fevers, denies any epigastric abdominal pain and denies any diarrhea. Patient was recently discharged from [facility] yesterday, medications were changed to Abilify and her H2 isabel was increased. Patient has had a cholecystectomy and hysterectomy, still has her appendix. TRAVEL OUTSIDE OF THE [place] IN LAST 30 DAYS: No - Related Data Allergies/Adverse Reactions: clonazepam [From Klonopin] Allergy (Verified 10/31/19 05:29) haloperidol [From Haldol] Allergy (Verified 10/31/19 05:29) haloperidol lactate [From Haldol] Allergy (Verified 10/31/19 05:29) quetiapine [From Seroquel] Allergy (Verified 10/31/19 05:29) topiramate [From Topamax] Allergy (Verified 10/31/19 05:29) ziprasidone HCl [From Geodon] Allergy (Verified 10/31/19 05:29) ziprasidone mesylate [From Geodon] Allergy (Verified 10/31/19 05:29) cariprazine [From Vraylar] Adverse Reaction (Verified 10/31/19 05:29) Home Medications: Metoprolol 50mg Daily. Depakote 750mg q.h.s. Prilosec 20mg Daily. Simvastatin 20mg q.h.s. Aripiprazole 5mg Daily Past Medical History - General Information source: Patient - Social History Smoking Status: Never Smoker Frequency of alcohol use: None Drug Abuse: None Family History: Reviewed & Not Pertinent Patient has suicidal ideation: No Patient has homicidal ideation: No - Past Medical History Cardiac Medical History: Reports: Hx Hypercholesterolemia Renal/ Medical History: Denies: Hx Peritoneal Dialysis GI Medical History: Reports: Hx Irritable Bowel, Hx Colonoscopy Psychiatric Medical History: Reports: Hx Bipolar Disorder, Hx Depression, Hx Schizoaffective Disorder, Hx Schizophrenia Past Surgical History: Reports: Hx Cholecystectomy, Hx Hysterectomy - Immunizations Hx Diphtheria, Pertussis, Tetanus Vaccination: Yes Review of Systems - Review of Systems Constitutional: No symptoms reported Gastrointestinal: See HPI -: Yes All other systems reviewed and negative Physical Exam - Vital signs Vitals: Temp Pulse Resp BP Pulse Ox 97.8 F 94 12 134/79 H 98 10/31/19 04:01 10/31/19 04:01 10/31/19 04:01 10/31/19 04:01 10/31/19 04:01 - Notes Notes: GENERAL: Alert, interacts well. No acute distress. Obese HEAD: Normocephalic, atraumatic EYES: Pupils equal, round and reactive to light, extraocular movements intact. ENT: Oral mucosa moist, tongue midline. NECK: Full range of motion, supple, trachea midline. LUNGS: Clear to auscultation bilaterally, no wheezes, rales or rhonchi, no respiratory distress. HEART: Regular rate and rhythm, no murmurs, gallops, rubs. ABDOMEN: Soft, right lower quadrant tenderness palpation, nondistended, bowel sounds present in all 4 quadrants. EXTREMITIES: Moves all 4 extremities spontaneously, no edema, radial and dorsalis pedis pulses 2/4 bilaterally. No cyanosis. NEUROLOGICAL: Alert and oriented x3, normal speech. PSYCH: Normal mood, normal affect. SKIN: Warm, Dry, normal turgor, no rashes or lesions noted. Course - Re-evaluation Re-evalutation: 10/31/19 05:32 CBC unremarkable, CMP unremarkable, mildly elevated glucose at 135, nonfasting, troponin negative, ordered because of possible anginal equivalent in a 64 -year-old female. Flu swab negative. CT scan is pending to look for possible appendicitis given the right lower quadrant abdominal pain and the vomiting. Patient had another episode of emesis in the bathroom after receiving Zofran, patient will be given Phenergan. 10/31/19 07:36 Abdomen/Pelvis CT 10/31/19 04:02 IMPRESSION: Colonic and enteric fluid which may indicate ileus, malabsorption, or enteritis/toxin. Patient still having low level nausea however eager to try drinking some water. Patient will be given another dose of Zofran, given oral challenge and if she is able to keep fluid down for 30 minutes she will be discharged home with Phenergan and Zofran. - Vital Signs Vital signs: Temp Pulse Resp BP Pulse Ox 97.8 F 94 12 134/79 H 98 10/31/19 04:01 10/31/19 04:01 10/31/19 04:01 10/31/19 04:01 10/31/19 04:01 - Laboratory Result Diagrams: 10/31/19 03:57 10/31/19 03:57 Laboratory results interpreted by me: 10/31/19 10/31/19 10/31/19 03:57 03:57 06:06 RDW 14.5 H Seg Neutrophils % 78.2 H Glucose 135 H Urine Protein 30 H Urine Ketones TRACE H - EKG Interpretation by Me Additional EKG results interpreted by me: 10/31/19 04:16 EKG shows sinus rhythm at a rate of 82, normal axis, normal intervals, no ST segment elevation or depression, there are T wave inversions noted in lead III per my interpretation. Discharge - Discharge Clinical Impression: Nausea and vomiting Qualifiers: Vomiting type: unspecified Vomiting Intractability: non-intractable Qualified Code(s): R11.2 - Nausea with vomiting, unspecified Abdominal pain Qualifiers: Abdominal location: right lower quadrant Qualified Code(s): R10.31 - Right low er quadrant pain Condition: Stable Disposition: HOME, SELF-CARE Additional Instructions: Abdominal Pain There are many causes of abdominal pain. Pain can mean a serious problem requiring surgery (such as appendicitis). It can also be an innocent problem that goes away on its own (such as a viral infection). Often, time must pass to determine the cause of pain. The physician does not feel that hospitalization is necessary, at present. Things may change within the next 24 hours. Call the doctor or come back for re- examination if any problems occur, such as: (1) Pain that becomes more severe, steady, or becomes concentrated in one specific area. Also, pain that is more severe with movement or coughing. (2) Vomiting that persists or becomes more frequent. (3) Blood in the vomitus, urine, or bowel movements. Blood in the stool may have a tarry or black appearance. (4) Shaking chills or fever greater than 100 degrees F. (5) The abdomen becomes more distended or swollen. (6) Bowel movements cease. (7) Failure to improve as expected. Use the Zofran and the Phenergan as directed to help with your vomiting. Prescriptions: Promethazine HCl [Phenergan 25 mg Tablet] 1 - 2 tab PO Q6H PRN #15 tablet PRN Reason: Ondansetron [Zofran Odt 4 mg Tablet] 1 - 2 tab PO Q4H PRN #15 tab.rapdis PRN Reason: For Nausea/Vomiting Referrals: EDDI HUTSON PA-C [Primary Care Provider] - Follow up as needed
[2019-10-31 04:29] LABS: ALBUMIN 4.5 g/dL (3.5-5.0); ALKALINE PHOSPHATASE 90 U/L (38-126); ANION GAP 13 (5-19); ASPARTATE AMINO TRANSFERASE 23 U/L (14-36); BILIRUBIN,DIRECT 0.3 mg/dL (0.0-0.4); BILIRUBIN,TOTAL 0.4 mg/dL (0.2-1.3); BLOOD UREA NITROGEN 12 mg/dL (7-20); CARBON DIOXIDE 26 mmol/L (22-30); CHLORIDE 100 mmol/L (98-107); GLUCOSE 135 mg/dL (75-110); POTASSIUM 3.8 mmol/L (3.6-5.0); TOTAL PROTEIN 7.9 g/dL (6.3-8.2)
[2019-10-31 05:14] LABS: A TYPE INFLUENZA AG NEGATIVE (NEGATIVE); B INFLUENZA AG NEGATIVE (NEGATIVE)
[2019-10-31] MEDS ORDERED: PROMETHAZINE HCL INJ 25 MG/1 ML VIAL IM ONE (05:32)
[2019-10-31 06:26] LABS: APPEARANCE,URINE CLEAR; BILIRUBIN,URINE NEGATIVE (NEGATIVE); COLOR,URINE YELLOW; GLUCOSE, URINE NEGATIVE (NEGATIVE); KETONES,URINE TRACE mg/dL (NEGATIVE); LEUKOCYTE ESTERASE,URINE NEGATIVE (NEGATIVE); NITRITE,URINE NEGATIVE (NEGATIVE); PROTEIN,URINE 30 mg/dL (NEGATIVE); UROBILINOGEN,URINE NEGATIVE mg/dL (<2.0)
[2019-10-31 06:45] LABS: URINE SPECIFIC GRAVITY > 1.060
--- NOTE | 2019-10-31 07:21 | RADIOLOGY REPORT (SQ) ---
EXAM DESCRIPTION: CT ABDOMEN PELVIS WITH IV CONTRAST COMPLETED DATE/TME: 10/31/2019 04:02 CLINICAL HISTORY: 64 years Female, RLQ abd pain, vomiting Comparison:Mar 06 2019 Technique: IV contrast. Coronal and sagittal reformat. This exam was performed according to our departmental dose-optimization program, which includes automated exposure control, adjustment of the mA and/or kV according to patient size and/or use of iterative reconstruction technique. [facility]: Dose Right [facility]: CareDose [facility]: Dose Right [facility]: Teradose 4D [facility]: aiHit LIMITATIONS: None Findings: Colonic and enteric fluid which may indicate ileus, malabsorption, or enteritis/toxin. Atherosclerotic vascular disease. Cholecystectomy. Likely benign, low-attenuation hepatic lesion(s) not definitively characterized. Small hiatal hernia. Degenerative disc disease. No ascites. No pneumoperitoneum. Appendicolith(s) and/or retained contrast. No evidence of appendicitis. No hydronephrosis or hydroureter. No renal/ureteral stone. No evidence of abdominal aortic aneurysm. No gross evidence of thecal sac/cord or nerve root compression. Inferior thorax, liver, pancreas, spleen, adrenals, renal system, gastrointestinal tract, pelvic organs, lymphatics, vasculature, and musculoskeleton appear otherwise unremarkable. IMPRESSION: Colonic and enteric fluid which may indicate ileus, malabsorption, or enteritis/toxin.
[2019-10-31] MEDS ORDERED: PROMETHAZINE HCL INJ 25 MG/1 ML VIAL IV PRN (09:49)
[2019-10-31] MEDS ORDERED: MAG HYDROX/AL HYDROX/SIMETH SUSP 30 ML UDCUP PO PRN (09:49)
[2019-10-31] MEDS ORDERED: ONDANSETRON HCL INJ/PF 4 MG/2 ML SDV IV PRN (09:49)
[2019-10-31] MEDS: FAMOTIDINE INJ/PF 20 MG/2 ML SDV IV SCH ×2 (10:41→22:24)
[2019-10-31] MEDS: NORMAL SALINE 1000 ML 1,000 ML IV PRN ×2 (10:48→22:26)
[2019-10-31] MEDS ORDERED: DICYCLOMINE HCL 20 MG TABLET PO PRN (13:44)
--- NOTE | 2019-10-31 13:47 | PDOC H&P ---
History of Present Illness Admission Date/PCP: 10/31/19 09:39 EDDI HUSTON PA-C Patient complains of: Nausea vomiting History of Present Illness: TANYA MARTINEZ is a 64 year old female with a past medical history significant for Hypertension, hyperlipidemia, depression, anxiety with recent admission for screening for suicidal evaluation presents today to the emergency department with a complaint of sudden onset right lower quadrant abdominal pain with nausea and vomiting. Evaluation in the emergency department revealed stable vital signs, normal labo ratory evaluation, CT of the abdomen and pelvis demonstrated enteritis versus ileus. She was provided antiemetics and a trial of p.o. fluids but continued to have multiple episodes of witnessed. Therefore, she was referred to the hospital service for admission and management of intractable nausea and vomiting Past Medical History Cardiac Medical History: Reports: Hyperlipidema, Hypertension Pulmonary Medical History: Reports: None EENT Medical History: Reports: None Neurological Medical History: Reports: None Endocrine Medical History: Reports: Obesity Denies: Diabetes Mellitus Type 2, Hypothyroidism Renal/ Medical History: Reports: None Malignancy Medical History: Reports: None GI Medical History: Reports: None Musculoskeltal Medical History: Reports: None Psychiatric Medical History: Reports: Bipolar Disorder, Depression, Schizoaffective Disorder Traumatic Medical History: Reports: None Hematology: Reports: None Infectious Medical History: Reports: None Past Surgical History Past Surgical History: Reports: Cholecystectomy, Hysterectomy Social History Information Source: Patient Lives with: Alone Smoking Status: Former Smoker Electronic Cigarette use?: No Number of Years Smokin Last Time Smoked: 30 years Frequency of Alcohol Use: None Hx Recreational Drug Use: No Drugs: None Hx Prescription Drug Abuse: No - Advance Directive Resuscitation Status: Full Code Family History Family History: Reviewed & Not Pertinent Parental Family History Reviewed: Yes Children Family History Reviewed: Yes Sibling(s) Family History Reviewed.: Yes Medication/Allergy Home Medications: Divalproex Sodium [Depakote] 750 mg PO QHS 07/11/13 Acetaminophen [Tylenol] 650 mg PO Q6HP PRN 10/31/19 Aripiprazole 5 mg PO QHS 10/31/19 Ca Citrate/Mgox/Vit D3/B6/Min [Citracal Plus Tablet] 1 tab PO DAILY 10/31/19 Metoprolol Succinate [Toprol Xl 50 mg Tab.sr] 50 mg PO DAILY 10/31/19 Omeprazole 20 mg PO DAILY 10/31/19 Simvastatin 20 mg PO QHS 10/31/19 Allergies/Adverse Reactions: clonazepam [From Klonopin] Allergy (Verified 10/31/19 05:29) haloperidol [From Haldol] Allergy (Verified 10/31/19 05:29) haloperidol lactate [From Haldol] Allergy (Verified 10/31/19 05:29) quetiapine [From Seroquel] Allergy (Verified 10/31/19 05:29) topiramate [From Topamax] Allergy (Verified 10/31/19 05:29) ziprasidone HCl [From Geodon] Allergy (Verified 10/31/19 05:29) ziprasidone mesylate [From Geodon] Allergy (Verified 10/31/19 05:29) cariprazine [From Vraylar] Adverse Reaction (Verified 10/31/19 05:29) Review of Systems Constitutional: ABSENT: chills, fever(s), headache(s), weight gain, weight loss Eyes: ABSENT: visual disturbances Ears: ABSENT: hearing changes Cardiovascular: ABSENT: chest pain, dyspnea on exertion, edema, orthropnea, palpitations Respiratory: ABSENT: cough, hemoptysis Gastrointestinal: PRESENT: abdominal pain, nausea, vomiting. ABSENT: constipation, diarrhea, hematemesis, hematochezia Genitourinary: ABSENT: dysuria, hematuria Musculoskeletal: ABSENT: joint swelling Integumentary: ABSENT: rash, wounds Neurological: ABSENT: abnormal gait, abnormal speech, confusion, dizziness, focal weakness, syncope Psychiatric: PRESENT: depression. ABSENT: anxiety, homidical ideation, suicidal ideation Endocrine: ABSENT: cold intolerance, heat intolerance, polydipsia, polyuria Hematologic/Lymphatic: ABSENT: easy bleeding, easy bruising Physical Exam Vital Signs: Temp Pulse Resp BP Pulse Ox 98.9 F 94 20 152/80 H 95 10/31/19 09:39 10/31/19 04:01 10/31/19 11:01 10/31/19 11:01 10/31/19 11:01 Intake & Output 10/30/19 10/31/19 11/01/19 06:59 06:59 06:59 Intake Total 1000 Balance 1000 Weight 122.47 kg General appearance: PRESENT: no acute distress, cooperative, morbidly obese, well-developed, well-nourished Head exam: PRESENT: atraumatic, normocephalic Eye exam: PRESENT: conjunctiva pink, EOMI, PERRLA. ABSENT: scleral icterus Ear exam: PRESENT: normal external ear exam Mouth exam: PRESENT: moist, tongue midline Neck exam: ABSENT: carotid bruit, JVD, lymphadenopathy, thyromegaly Respiratory exam: PRESENT: clear to auscultation juan, symmetrical, unlabored. ABSENT: rales, rhonchi, wheezes Cardiovascular exam: PRESENT: RRR, +S1, +S2. ABSENT: diastolic murmur, rubs, systolic murmur Pulses: PRESENT: normal dorsalis pedis pul Vascular exam: PRESENT: normal capillary refill GI/Abdominal exam: PRESENT: hypoactive bowel sounds, soft, tenderness. ABSENT: distended, guarding, mass, organolmegaly, rebound Rectal exam: PRESENT: deferred Extremities exam: PRESENT: full ROM. ABSENT: calf tenderness, clubbing, pedal edema Neurological exam: PRESENT: alert, awake, oriented to person, oriented to place, oriented to time, oriented to situation, CN II-XII grossly intact. ABSENT: mo tor sensory deficit Psychiatric exam: PRESENT: appropriate affect, normal mood. ABSENT: homicidal ideation, suicidal ideation Skin exam: PRESENT: dry, intact, warm. ABSENT: cyanosis, rash Results Laboratory Results: 10/31/19 03:57 10/31/19 03:57 10/31/19 10/31/19 10/31/19 03:57 03:57 06:06 WBC 10.0 RBC 4.35 Hgb 12.7 Hct 38.1 MCV 88 MCH 29.3 MCHC 33.5 RDW 14.5 H Plt Count 310 Seg Neutrophils % 78.2 H Sodium 139.1 Potassium 3.8 Chloride 100 Carbon Dioxide 26 Anion Gap 13 BUN 12 Creatinine 0.82 Est GFR ( Amer) > 60 Glucose 135 H Calcium 10.0 Total Bilirubin 0.4 AST 23 Alkaline Phosphatase 90 Total Protein 7.9 Albumin 4.5 Lipase 69.6 Urine Color YELLOW Urine Appearance CLEAR Urine pH 5.0 Ur Specific [place] > 1.060 Urine Protein 30 H Urine Glucose (UA) NEGATIVE Urine Ketones TRACE H Urine Blood NEGATIVE Urine Nitrite NEGATIVE Ur Leukocyte Esterase NEGATIVE Urine WBC (Auto) 1 Urine RBC (Auto) 4 10/31/19 03:57 Troponin I < 0.012 Impressions: Abdomen/Pelvis CT 10/31/19 04:02 IMPRESSION: Colonic and enteric fluid which may indicate ileus, malabsorption, or enteritis/toxin. Assessment and Plan - Diagnosis (1) Nausea and vomiting Qualifiers: Vomiting type: unspecified Vomiting Intractability: intractable Qualified Code(s): R11.2 - Nausea with vomiting, unspecified Is this a current diagnosis for this admission?: Yes Plan: Secondary to enteritis. Continue IV fluids. Clear liquid diet; advance slowly as tolerated. Antiemetics and analgesics as needed. Observe for evidence of ileus in which case the patient will be placed in n.p.o. status. (2) Abdominal pain Qualifiers: Abdominal location: right lower quadrant Qualified Code(s): R10.31 - Right lower quadrant pain Is this a current diagnosis for this admission?: Yes Plan: CT of the abdomen pelvis showed colonic and enteric fluid which may indicate ileus versus enteritis. Clear liquid diet. Bentyl as needed. (3) Hypertension Is this a current diagnosis for this admission?: Yes Plan: Continue home dose metoprolol. (4) Hyperlipemia Is this a current diagnosis for this admission?: Yes Plan: Continue statin. (5) Morbid obesity Is this a current diagnosis for this admission?: Yes Plan: Dietary discretion Modification advised. Patient is currently on clear liquid diet; advance to cardiac when appropriate. (6) Depression Is this a current diagnosis for this admission?: Yes Plan: [facility] To medication management. - Time Time Spent with patient: 35 or more minutes Medications reviewed and adjusted accordingly: Yes Anticipated discharge: Home Within: within 24 hours
[2019-10-31] MEDS: HEPARIN SOD (PORCINE) 5,000 UNIT/ML 1 ML VIAL SUBCUT SCH ×2 (14:38→22:24)
[2019-10-31] MEDS: ACETAMINOPHEN 325 MG TABLET PO PRN (18:00)
--- NOTE | 2019-10-31 19:26 | EKG REPORT ---
SEVERITY:- NORMAL ECG - SINUS RHYTHM : Confirmed by: Linsey Renee MD 31-Oct-2019 19:25:29
[2019-10-31] MEDS ORDERED: (PENDING PHARMACY ID) (Simvastatin [Simvastatin] 20 MG) PO SCH (22:00)
[2019-10-31] MEDS ORDERED: DIVALPROEX SODIUM 750 MG PO SCH (22:00)
[2019-10-31] MEDS ORDERED: ARIPIPRAZOLE 5 MG TABLET PO SCH (22:00)
[2019-10-31] MEDS ORDERED: SIMVASTATIN 10 MG TABLET PO SCH ×2 (22:00)
[2019-10-31] MEDS ORDERED: DIVALPROEX SODIUM 500 MG TAB.SR.24H PO SCH (22:00)
[2019-11-01] MEDS: HEPARIN SOD (PORCINE) 5,000 UNIT/ML 1 ML VIAL SUBCUT SCH ×2 (05:14→15:14)
[2019-11-01] MEDS: NORMAL SALINE 1000 ML 1,000 ML IV PRN (05:15)
[2019-11-01 05:18] LABS: HEMOGLOBIN 11.7 g/dL (12.0-15.5); MEAN CORPUSCULAR HEMOGLOBIN 29.3 pg (27.0-33.4); MEAN CORPUSCULAR HGB CONC 33.4 g/dL (32.0-36.0); MEAN CORPUSCULAR VOLUME 88 fl (80-97); PLATELET COUNT 248 10^3/uL (150-450); RED CELL DISTRIBUTION WIDTH 14.3 % (11.5-14.0); WHITE BLOOD COUNT 6.6 10^3/uL (4.0-10.5)
[2019-11-01 05:40] LABS: ALKALINE PHOSPHATASE 69 U/L (38-126); ANION GAP 13 (5-19); ASPARTATE AMINO TRANSFERASE 20 U/L (14-36); BILIRUBIN,DIRECT 0.3 mg/dL (0.0-0.4); BILIRUBIN,TOTAL 0.4 mg/dL (0.2-1.3); BLOOD UREA NITROGEN 7 mg/dL (7-20); CALCIUM 8.8 mg/dL (8.4-10.2); CARBON DIOXIDE 22 mmol/L (22-30); CHLORIDE 105 mmol/L (98-107); GLUCOSE 101 mg/dL (75-110); POTASSIUM 3.4 mmol/L (3.6-5.0); TOTAL PROTEIN 7.2 g/dL (6.3-8.2)
[2019-11-01] MEDS ORDERED: ONDANSETRON 4 MG TAB.RAPDIS PO PRN (07:57)
[2019-11-01] MEDS ORDERED: METOPROLOL SUCCINATE 50 MG TAB.SR.24H PO SCH (10:00)
[2019-11-01] MEDS ORDERED: PANTOPRAZOLE SODIUM 20 MG TABLET.DR PO SCH (10:00)
[2019-11-01] MEDS: FAMOTIDINE INJ/PF 20 MG/2 ML SDV IV SCH (11:06)
--- NOTE | 2019-11-01 12:28 | PDOC DISCHARGE SUMMARY ---
Impression - Admit/DC Date/PCP Admission Date/Primary Care Provider: 10/31/19 09:39 EDDI HUSTON PA-C Discharge Date: 11/01/19 - Discharge Diagnosis (1) Nausea and vomiting Is this a current diagnosis for this admission?: Yes (2) Abdominal pain Is this a current diagnosis for this admission?: Yes (3) Hypertension Is this a current diagnosis for this admission?: Yes (4) Hyperlipemia Is this a current diagnosis for this admission?: Yes (5) Morbid obesity Is this a current diagnosis for this admission?: Yes (6) Depression Is this a current diagnosis for this admission?: Yes - Additional Information Resuscitation Status: Full Code Discharge Diet: As Tolerated, Regular Discharge Activity: Activity As Tolerated, Balance Activity w/Rest, Slowly Increase Activity Referrals: EDDI HUSTON PA-C [Primary Care Provider] - Follow up as needed Prescriptions: Dicyclomine HCl [Bentyl 20 mg Tablet] 20 mg PO Q6HP PRN #20 tablet PRN Reason: Promethazine HCl [Phenergan 25 mg Tablet] 25 mg PO Q8HP PRN #12 tablet PRN Reason: Ondansetron [Zofran Odt 4 mg Tablet] 4 mg PO Q6HP PRN #20 tab.rapdis PRN Reason: Home Medications: Divalproex Sodium [Depakote] 750 mg PO QHS 07/11/13 Acetaminophen [Tylenol] 650 mg PO Q6HP PRN 10/31/19 Aripiprazole 5 mg PO QHS 10/31/19 Ca Citrate/Mgox/Vit D3/B6/Min [Citracal Plus Tablet] 1 tab PO DAILY 10/31/19 Metoprolol Succinate [Toprol Xl 50 mg Tab.sr] 50 mg PO DAILY 10/31/19 Omeprazole 20 mg PO DAILY 10/31/19 Simvastatin 20 mg PO QHS 10/31/19 Acetaminophen [Tylenol 325 mg Tablet] 650 mg PO Q4HP PRN tablet 11/01/19 Dicyclomine HCl [Bentyl 20 mg Tablet] 20 mg PO Q6HP PRN #20 tablet 11/01/19 Ondansetron [Zofran Odt 4 mg Tablet] 4 mg PO Q6HP PRN #20 tab.rapdis 11/01/19 Promethazine HCl [Phenergan 25 mg Tablet] 25 mg PO Q8HP PRN #12 tablet 11/01/19 History of Present Illiness History of Present Illness: TANYA MARTINEZ is a 64 year old female with a past medical history significant for Hypertension, hyperlipidemia, depression, anxiety with recent admission for screening for suicidal evaluation presents today to the emergency department with a complaint of sudden onset right lower quadrant abdominal pain with nausea and vomiting. Evaluation in the emergency department revealed stable vital signs, normal laboratory evaluation, CT of the abdomen and pelvis demonstrated enteritis versus ileus. She was provided antiemetics and a trial of p.o. fluids but continued to have multiple episodes of witnessed. Therefore, she was referred to the hospital service for admission and management of intractable nausea and vomiting Hospital Course Hospital Course: The patient was admitted to the medical floor. She was supported with IV fluids antiemetics, and, initially, a clear liquid diet. Her nausea and vomiting improved overnight; no further episodes of emesis. She did develop diarrhea; preliminary stool study is negative. She reports 2 loose bm's today; but with improved abdominal discomfort and appetite. She was advanced to a GALO diet which she has tolerated well. She is now requesting to discharge to home. She is discharged in stable condition. She is advised to drink plenty of fluids. Take medications as prescribed. Follow up with primary care provider within 1 week. Return to the emergency department as needed for concerning symptoms. Physical Exam Vital Signs: Temp Pulse Resp BP Pulse Ox 98.2 F 92 16 143/63 H 98 11/01/19 00:00 11/01/19 00:00 11/01/19 00:00 11/01/19 00:00 11/01/19 00:00 Intake & Output 10/31/19 11/01/19 11/02/19 06:59 06:59 06:59 Intake Total 1000 2752 Balance 1000 2752 Weight 122.47 kg 124.1 kg General appearance: PRESENT: no acute distress, cooperative, morbidly obese, well-developed, well-nourished Head exam: PRESENT: atraumatic, normocephalic Eye exam: PRESENT: conjunctiva pink, EOMI, PERRLA. ABSENT: scleral icterus Ear exam: PRESENT: normal external ear exam Mouth exam: PRESENT: moist, tongue midline Respiratory exam: PRESENT: clear to auscultation juan, symmetrical, unlabored. ABSENT: rales, rhonchi, wheezes Cardiovascular exam: PRESENT: RRR, +S1, +S2. ABSENT: diastolic murmur, rubs, systolic murmur Pulses: PRESENT: normal dorsalis pedis pul Vascular exam: PRESENT: normal capillary refill GI/Abdominal exam: PRESENT: normal bowel sounds, soft. ABSENT: distended, guarding, mass, organolmegaly, rebound, tenderness Rectal exam: PRESENT: deferred Extremities exam: PRESENT: full ROM. ABSENT: calf tenderness, clubbing, pedal edema Musculoskeletal exam: PRESENT: ambulatory Neurological exam: PRESENT: alert, awake, oriented to person, oriented to place, oriented to time, oriented to situation, CN II-XII grossly intact. ABSENT: motor sensory deficit Psychiatric exam: PRESENT: appropriate affect, normal mood. ABSENT: homicidal ideation, suicidal ideation Skin exam: PRESENT: dry, intact, warm. ABSENT: cyanosis, rash Results Laboratory Results: WBC 6.6 10^3/uL (4.0-10.5) 11/01/19 04:55 RBC 4.00 10^6/uL (3.72-5.28) 11/01/19 04:55 Hgb 11.7 g/dL (12.0-15.5) L 11/01/19 04:55 Hct 35.0 % (36.0-47.0) L 11/01/19 04:55 MCV 88 fl (80-97) 11/01/19 04:55 MCH 29.3 pg (27.0-33.4) 11/01/19 04:55 MCHC 33.4 g/dL (32.0-36.0) 11/01/19 04:55 RDW 14.3 % (11.5-14.0) H 11/01/19 04:55 Plt Count 248 10^3/uL (150-450) 11/01/19 04:55 Lymph % (Auto) 14.4 % (13-45) 10/31/19 03:57 [place] % (Auto) 5.8 % (3-13) 10/31/19 03:57 Eos % (Auto) 0.6 % (0-6) 10/31/19 03:57 Baso % (Auto) 1.0 % (0-2) 10/31/19 03:57 Absolute Neuts (auto) 7.8 10^3/uL (1.7-8.2) 10/31/19 03:57 Absolute Lymphs (auto) 1.4 10^3/uL (0.5-4.7) 10/31/19 03:57 Absolute Monos (auto) 0.6 10^3/uL (0.1-1.4) 10/31/19 03:57 Absolute Eos (auto) 0.1 10^3/uL (0.0-0.6) 10/31/19 03:57 Absolute Basos (auto) 0.1 10^3/uL (0.0-0.2) 10/31/19 03:57 Seg Neutrophils % 78.2 % (42-78) H 10/31/19 03:57 Sodium 139.7 mmol/L (137-145) 11/01/19 04:55 Potassium 3.4 mmol/L (3.6-5.0) L 11/01/19 04:55 Chloride 105 mmol/L (98-107) 11/01/19 04:55 Carbon Dioxide 22 mmol/L (22-30) 11/01/19 04:55 Anion Gap 13 (5-19) 11/01/19 04:55 BUN 7 mg/dL (7-20) 11/01/19 04:55 Creatinine 0.65 mg/dL (0.52-1.25) 11/01/19 04:55 Est GFR ( Amer) > 60 (>60) 11/01/19 04:55 Est GFR (MDRD) Non-Af > 60 (>60) 11/01/19 04:55 Glucose 101 mg/dL (75-110) 11/01/19 04:55 Calcium 8.8 mg/dL (8.4-10.2) 11/01/19 04:55 Total Bilirubin 0.4 mg/dL (0.2-1.3) 11/01/19 04:55 Direct Bilirubin 0.3 mg/dL (0.0-0.4) 11/01/19 04:55 Neonat Total Bilirubin Not Reportable 11/01/19 04:55 Neonat Direct Bilirubin Not Reportable 11/01/19 04:55 Neonat Indirect Bili Not Reportable 11/01/19 04:55 AST 20 U/L (14-36) 11/01/19 04:55 ALT 14 U/L (<35) 11/01/19 04:55 Alkaline Phosphatase 69 U/L (38-126) 11/01/19 04:55 Troponin I < 0.012 ng/mL 10/31/19 03:57 Total Protein 7.2 g/dL (6.3-8.2) 11/01/19 04:55 Albumin 4.0 g/dL (3.5-5.0) 11/01/19 04:55 Lipase 69.6 U/L (23-300) 10/31/19 03:57 Urine Color YELLOW 10/31/19 06:06 Urine Appearance CLEAR 10/31/19 06:06 Urine pH 5.0 (5.0-9.0) 10/31/19 06:06 Ur Specific [place] > 1.060 10/31/19 06:06 Urine Protein 30 mg/dL (NEGATIVE) H 10/31/19 06:06 Urine Glucose (UA) NEGATIVE mg/dL (NEGATIVE) 10/31/19 06:06 Urine Ketones TRACE mg/dL (NEGATIVE) H 10/31/19 06:06 Urine Blood NEGATIVE (NEGATIVE) 10/31/19 06:06 Urine Nitrite NEGATIVE (NEGATIVE) 10/31/19 06:06 Urine Bilirubin NEGATIVE (NEGATIVE) 10/31/19 06:06 Urine Urobilinogen NEGATIVE mg/dL (<2.0) 10/31/19 06:06 Ur Leukocyte Esterase NEGATIVE (NEGATIVE) 10/31/19 06:06 Urine WBC (Auto) 1 /HPF 10/31/19 06:06 Urine RBC (Auto) 4 /HPF 10/31/19 06:06 Squamous Epi Cells Auto <1 /HPF 10/31/19 06:06 Urine Mucus (Auto) FEW /LPF 10/31/19 06:06 Urine Ascorbic Acid NEGATIVE (NEGATIVE) 10/31/19 06:06 Influenza A (Rapid) NEGATIVE (NEGATIVE) 10/31/19 04:16 Influenza B (Rapid) NEGATIVE (NEGATIVE) 10/31/19 04:16 10/31/19 03:57 Troponin I < 0.012 Impressions: Abdomen/Pelvis CT 10/31/19 04:02 IMPRESSION: Colonic and enteric fluid which may indicate ileus, malabsorption, or enteritis/toxin. Plan Plan of Treatment: Patient is discharged to home in stable condition. She is instructed to follow up with her primary care provider within 1 week. Drink plenty of fluids. Eat a GALO diet. Take medications as prescribed. Return to the emergency department as needed for concerning symptoms. Time Spent: Less than 30 Minutes Stroke Is this a Stroke Patient?: No Acute Heart Failure - Is this a Heart Failure Patient?: No
[2019-11-01] MEDS: ACETAMINOPHEN 325 MG TABLET PO PRN (15:19)
[2019-11-01 16:44] VITALS: BP 147/77
== END 2019-11-01 17:37 | disposition home or self-care (01) ==
LOC: ER 03:42 → EH 09:39 → 5 12:16
PROVIDERS: ADMIT Internal Medicine; ATTEND Internal Medicine
DX: R11.2 Nausea with vomiting, unspecified (principal); R10.31 Right lower quadrant pain; E66.9 Obesity, unspecified; F31.9 Bipolar disorder, unspecified; E78.00 Pure hypercholesterolemia, unspecified; R73.9 Hyperglycemia, unspecified; Z90.49 Acquired absence of other specified parts of digestive tract; Z90.710 Acquired absence of both cervix and uterus
CPT/HCPCS: 93005; 96376; 99285; 96372; 96361; 96374; 96375; 36415 ×2; 87045; 87205; 83690; 85025; 85027; 80053 ×2; 81001; 84484; 87804; 74177; 93010; G0378 ×3; A9270 ×7; J1644 ×2; J1170; J2550 ×2; J2405 ×2; J7030 ×2; S0028 ×2; J3490

== ENCOUNTER 2019-12-03 08:53 | Emergency (ER) | payer MEDICARE, MEDICAID ==
--- NOTE | 2019-12-03 09:28 | ER Document Report ---
ED General - General Chief Complaint: Other Stated Complaint: POSSIBLE WITHDRAWLS Time Seen by Provider: 12/03/19 09:08 Primary Care Provider: EDDI HUSTON PA-C [Primary Care Provider] - Follow up as needed Notes: 62-year-old lady with multiple psych issues on multiple psych meds presents with constipation insomnia and anxiety after having her antipsychotic and antidepressant discontinued at an inpatient psych facility about a week ago. She has been having these symptoms for about 5 days has seen her psychiatrist who told her to see her primary was not in the office today so she came here. No SI no HI no pain. Does have some mild muscle aches and some insomnia but no true anxiety or tremulousness no drugs or alcohol. TRAVEL OUTSIDE OF THE [place] IN LAST 30 DAYS: No - Related Data Allergies/Adverse Reactions: clonazepam [From Klonopin] Allergy (Verified 10/31/19 05:29) haloperidol [From Haldol] Allergy (Verified 10/31/19 05:29) haloperidol lactate [From Haldol] Allergy (Verified 10/31/19 05:29) quetiapine [From Seroquel] Allergy (Verified 10/31/19 05:29) topiramate [From Topamax] Allergy (Verified 10/31/19 05:29) ziprasidone HCl [From Geodon] Allergy (Verified 10/31/19 05:29) ziprasidone mesylate [From Geodon] Allergy (Verified 10/31/19 05:29) cariprazine [From Vraylar] Adverse Reaction (Verified 10/31/19 05:29) Past Medical History - Social History Smoking Status: Never Smoker Family History: Reviewed & Not Pertinent - Past Medical History Cardiac Medical History: Reports: Hx Hypercholesterolemia, Hx Hypertension Endocrine Medical History: Denies: Hx Diabetes Mellitus Type 2, Hx Hypothyroidism Renal/ Medical History: Denies: Hx Peritoneal Dialysis GI Medical History: Reports: Hx Irritable Bowel, Hx Colonoscopy Psychiatric Medical History: Reports: Hx Bipolar Disorder, Hx Depression, Hx Schizoaffective Disorder, Hx Schizophrenia Past Surgical History: Reports: Hx Cholecystectomy, Hx Hysterectomy - Immunizations Hx Diphtheria, Pertussis, Tetanus Vaccination: Yes Review of Systems - Review of Systems Notes: REVIEW OF SYSTEMS GEN: Denies fever, chills, weight loss ENT: Denies sore throat, nasal discharge, ear pain EYES: Denies blurry vision, eye pain, discharge CV: Denies chest pain, palpitations, edema RESP: Denies cough, shortness of breath, wheezing GI: Constipation MSK: Myalgia SKIN: Denies rash, skin lesions LYMPH: Denies swollen glands/lymph nodes NEURO: Denies headache, focal weakness or numbness, dizziness PSYCH: Denies depression, suicidal or homicidal ideation PHYSICAL EXAMINATION General: No acute distress, well-nourished Head: Atraumatic, normocephalic ENT: Mouth normal, oropharynx moist, no exudates or tonsillar enlargement Eyes: Conjunctiva normal, pupils equal, lids normal Neck: No JVD, supple, no guarding CVS: Normal rate, regular rhythm, no murmurs Resp: No resp distress, equal and normal breath sounds bilaterally GI: Nondistended, soft, no tenderness to palpation, no rebound or guarding Ext: No deformities, no edema, normal range of motion in upper and lower ext Back: No CVA or midline TTP Skin: No rash, warm Lymphatic: No lymphadeopathy noted Neuro: Awake, alert. Face symmetric. GCS 15. Physical Exam - Vital signs Vitals: Temp Pulse Resp BP Pulse Ox 98.0 F 100 16 191/89 H 100 12/03/19 09:01 12/03/19 09:01 12/03/19 09:01 12/03/19 09:01 12/03/19 09:01 Course - Re-evaluation Re-evalutation: 12/03/19 09:27 Vague physical symptoms with normal vital signs no SI no HI or other psych emergency all in the setting of long-term psych med changes. No clinical signs of opioid, benzodiazepine withdrawal. I think she stable to follow-up with her primary care and I do not think we need to do any work-up or symptomatic therapy here in the ED today. I have discussed with the patient there likely diagnosis, aftercare plan, follow-up plans and my usual and customary return precautions. They verbalized understanding of this. - Vital Signs Vital signs: Temp Pulse Resp BP Pulse Ox 98.0 F 100 16 191/89 H 100 12/03/19 09:01 12/03/19 09:01 12/03/19 09:01 12/03/19 09:01 12/03/19 09:01 Discharge - Discharge Clinical Impression: Adverse drug event Condition: Good Disposition: HOME, SELF-CARE Additional Instructions: Please follow-up with your primary care and psychiatrist to discuss medication changes and management of symptoms Referrals: EDDI HUSTON PA-C [Primary Care Provider] - Follow up as needed
[2019-12-03 09:41] VITALS: BP 144/80
== END 2019-12-03 09:46 | disposition home or self-care (01) ==
LOC: ER 08:53
DX: T50.915A Adverse effect of multiple unspecified drugs, medicaments and biological substances, initial encounter (principal); K59.00 Constipation, unspecified; G47.00 Insomnia, unspecified; X58.XXXA Exposure to other specified factors, initial encounter; I10 Essential (primary) hypertension; E78.00 Pure hypercholesterolemia, unspecified; Z90.49 Acquired absence of other specified parts of digestive tract; Z90.710 Acquired absence of both cervix and uterus

== ENCOUNTER 2020-06-22 22:28 | Emergency (ER) | payer MEDICARE, MEDICAID ==
--- NOTE | 2020-06-22 23:30 | ER Document Report ---
ED Medical Screen (RME) - General Chief Complaint: Abdominal Pain Stated Complaint: NAUSEA/ABDOM PAIN/HEADACHE Time Seen by Provider: 06/22/20 23:27 Primary Care Provider: EDDI HUSTON PA-C [Primary Care Provider] - Follow up as needed Mode of Arrival: Wheelchair Information source: Patient Notes: Patient reports she was recently switched from Depakote to Trileptal for her mood stabilizer. Patient reports she has been having severe abdominal pains and nausea since then. She believes she is having a reaction to the medication. She denies any chest pain or shortness of breath. Patient is alert, oriented, keeps repeating herself. She is answering all questions without difficulty. I have greeted and performed a rapid initial assessment of this patient. A comprehensive ED assessment and evaluation of the patient, analysis of test results and completion of the medical decision making process will be conducted by additional ED providers. I have specifically instructed the patient or family members with the patient to immediately return to any nursing staff should anything change in the patient's condition or with their chief complaint. TRAVEL OUTSIDE OF THE [place] IN LAST 30 DAYS: No - Related Data Allergies/Adverse Reactions: clonazepam [From Klonopin] Allergy (Verified 10/31/19 05:29) haloperidol [From Haldol] Allergy (Verified 10/31/19 05:29) haloperidol lactate [From Haldol] Allergy (Verified 10/31/19 05:29) quetiapine [From Seroquel] Allergy (Verified 10/31/19 05:29) topiramate [From Topamax] Allergy (Verified 10/31/19 05:29) ziprasidone HCl [From Geodon] Allergy (Verified 10/31/19 05:29) ziprasidone mesylate [From Geodon] Allergy (Verified 10/31/19 05:29) cariprazine [From Vraylar] Adverse Reaction (Verified 10/31/19 05:29) Past Medical History - Past Medical History Cardiac Medical History: Reports: Hx Hypercholesterolemia, Hx Hypertension Endocrine Medical History: Denies: Hx Diabetes Mellitus Type 2, Hx Hypothyroidism Renal/ Medical History: Denies: Hx Peritoneal Dialysis GI Medical History: Reports: Hx Irritable Bowel, Hx Colonoscopy Psychiatric Medical History: Reports: Hx Bipolar Disorder, Hx Depression, Hx Schizoaffective Disorder, Hx Schizophrenia Past Surgical History: Reports: Hx Cholecystectomy, Hx Hysterectomy - Immunizations Hx Diphtheria, Pertussis, Tetanus Vaccination: Yes Physical Exam - Vital signs Vitals: Temp Pulse Resp BP Pulse Ox 98.4 F 77 22 H 171/94 H 100 06/22/20 22:37 06/22/20 22:37 06/22/20 22:37 06/22/20 22:37 06/22/20 22:37 Course - Vital Signs Vital signs: Temp Pulse Resp BP Pulse Ox 98.4 F 77 22 H 171/94 H 100 06/22/20 22:37 06/22/20 22:37 06/22/20 22:37 06/22/20 22:37 06/22/20 22:37 Doctor's Discharge - Discharge Referrals: EDDI HUSTON PA-C [Primary Care Provider] - Follow up as needed
[2020-06-23 00:11] LABS: ABSOLUTE BASOPHILS # (AUTO) 0.1 10^3/uL (0.0-0.2); ABSOLUTE EOSINOPHILS # (AUTO) 0.1 10^3/uL (0.0-0.6); ABSOLUTE LYMPHOCYTES (AUTO) 3.3 10^3/uL (0.5-4.7); ABSOLUTE MONOCYTES (AUTO) 0.8 10^3/uL (0.1-1.4); ABSOLUTE NEUT (AUTO) 5.7 10^3/uL (1.7-8.2); BASOPHILS % (AUTO) 0.7 % (0-2); EOSINOPHILS % (AUTO) 0.7 % (0-6); HEMATOCRIT 37.3 % (36.0-47.0); LYMPHOCYTES % (AUTO) 33.5 % (13-45); MEAN CORPUSCULAR HEMOGLOBIN 28.9 pg (27.0-33.4); MEAN CORPUSCULAR HGB CONC 34.7 g/dL (32.0-36.0); MEAN CORPUSCULAR VOLUME 83 fl (80-97); MONOCYTES % (AUTO) 7.7 % (3-13); PLATELET COUNT 354 10^3/uL (150-450); RED BLOOD COUNT 4.47 10^6/uL (3.72-5.28); RED CELL DISTRIBUTION WIDTH 14.4 % (11.5-14.0); SEGMENTED NEUTROPHILS % (AUTO) 57.4 % (42-78); TOTAL CELLS COUNTED % (AUTO) 100 %
[2020-06-23 00:24] LABS: ALBUMIN 4.7 g/dL (3.5-5.0); ALKALINE PHOSPHATASE 83 U/L (38-126); ANION GAP 9 (5-19); ASPARTATE AMINO TRANSFERASE 23 U/L (14-36); BILIRUBIN,DIRECT 0.3 mg/dL (0.0-0.4); BILIRUBIN,TOTAL 0.4 mg/dL (0.2-1.3); BLOOD UREA NITROGEN 5 mg/dL (7-20); CALCIUM 9.8 mg/dL (8.4-10.2); CARBON DIOXIDE 27 mmol/L (22-30); CHLORIDE 90 mmol/L (98-107); GLUCOSE 107 mg/dL (75-110); POTASSIUM 4.8 mmol/L (3.6-5.0); TOTAL PROTEIN 7.7 g/dL (6.3-8.2)
[2020-06-23 00:29] LABS: APPEARANCE,URINE CLEAR; BILIRUBIN,URINE NEGATIVE (NEGATIVE); COLOR,URINE COLORLESS; GLUCOSE, URINE NEGATIVE (NEGATIVE); KETONES,URINE NEGATIVE (NEGATIVE); LEUKOCYTE ESTERASE,URINE NEGATIVE (NEGATIVE); NITRITE,URINE NEGATIVE (NEGATIVE); PROTEIN,URINE NEGATIVE (NEGATIVE); URINE SPECIFIC GRAVITY 1.002; UROBILINOGEN,URINE NEGATIVE mg/dL (<2.0)
[2020-06-23] MEDS ORDERED: ONDANSETRON HCL INJ/PF 4 MG/2 ML SDV IV ONE (05:01)
[2020-06-23] MEDS ORDERED: NORMAL SALINE 1000 ML 1,000 ML IV ONE (05:01)
--- NOTE | 2020-06-23 06:04 | ER Document Report ---
ED General - General Mode of Arrival: Wheelchair TRAVEL OUTSIDE OF THE [place] IN LAST 30 DAYS: No <BELKYS WINKLER uDlce - Last Filed: 06/23/20 06:52> <RAMANA CORONA - Last Filed: 06/23/20 15:38> - General Chief Complaint: Abdominal Pain Stated Complaint: NAUSEA/ABDOM PAIN/HEADACHE Time Seen by Provider: 06/22/20 23:27 Primary Care Provider: EDDI HUSTON PA-C [ALLIED HEALTH PROFESSIONAL] - Follow up as needed Notes: 65-year-old female history of hypertension, hyperlipidemia, diabetes, schizophrenia presents with approximately 1 week of nausea, diffuse abdominal discomfort, mild intermittent global headache not currently present, generalized weakness, myalgia, SOB that she has attributed to changing her long-term Depakote to Trileptal. Medication was changed because patient has been gaining excessively after many years on Depakote. Patient denies ever having any history of hyponatremia. Patient denies any chest pain at rest or with exertion, cardiac history, exercise intolerance, fever, cough, vomiting, diarrhea, constipation, urinary symptoms, vaginal symptoms, sick contacts (BELKYS WINKLER) - Related Data Allergies/Adverse Reactions: clonazepam [From Klonopin] Allergy (Verified 10/31/19 05:29) haloperidol [From Haldol] Allergy (Verified 10/31/19 05:29) haloperidol lactate [From Haldol] Allergy (Verified 10/31/19 05:29) quetiapine [From Seroquel] Allergy (Verified 10/31/19 05:29) topiramate [From Topamax] Allergy (Verified 10/31/19 05:29) ziprasidone HCl [From Geodon] Allergy (Verified 10/31/19 05:29) ziprasidone mesylate [From Geodon] Allergy (Verified 10/31/19 05:29) cariprazine [From Vraylar] Adverse Reaction (Verified 10/31/19 05:29) Past Medical History - General Information source: Patient - Social History Smoking Status: Unknown if Ever Smoked Family History: Reviewed & Not Pertinent - Past Medical History Cardiac Medical History: Reports: Hx Hypercholesterolemia, Hx Hypertension Endocrine Medical History: Denies: Hx Diabetes Mellitus Type 2, Hx Hypothyroidism Renal/ Medical History: Denies: Hx Peritoneal Dialysis GI Medical History: Reports: Hx Irritable Bowel, Hx Colonoscopy Psychiatric Medical History: Reports: Hx Bipolar Disorder, Hx Depression, Hx Schizoaffective Disorder, Hx Schizophrenia Past Surgical History: Reports: Hx Cholecystectomy, Hx Hysterectomy - Immunizations Hx Diphtheria, Pertussis, Tetanus Vaccination: Yes <BELKYS WINKLER - Last Filed: 06/23/20 06:52> Review of Systems <BELKYS WINKLER - Last Filed: 06/23/20 06:52> - Review of Systems Notes: REVIEW OF SYSTEMS: CONSTITUTIONAL : Denies fever, chills, or sweats. EENT: Denies recent cold/sinus symptoms, denies throat pain CARDIOVASCULAR: Denies chest pain, RUSS RESPIRATORY: Denies cough, + shortness of breath. GASTROINTESTINAL: + abdominal pain, + nausea/vomiting. GENITOURINARY: Denies difficulty urinating, painful urination. FEMALE GENITOURINARY: Denies abnormal vaginal bleeding, vaginal discharge. MUSCULOSKELETAL: Denies neck pain, back pain. SKIN: Denies rash or skin lesions. HEMATOLOGIC : Denies easy bruising or bleeding. LYMPHATIC: Denies swollen, enlarged glands. NEUROLOGICAL: + headache, denies change in gait. PSYCHIATRIC: Denies anxiety or stress or depression. (BELKYS WINKLER) Physical Exam <BELKYS WINKLER - Last Filed: 06/23/20 06:52> - Vital signs Vitals: Temp Pulse Resp BP Pulse Ox 98.4 F 77 22 H 171/94 H 100 06/22/20 22:37 06/22/20 22:37 06/22/20 22:37 06/22/20 22:37 06/22/20 22:37 - Notes Notes: PHYSICAL EXAMINATION: GENERAL: Well-appearing, well-nourished and in no acute distress. HEAD: Atraumatic, normocephalic. EYES: Pupils equal round and appropriate constriction, sclera anicteric, conjunctiva are normal. ENT: nares patent, moist mucous membranes. NECK: Normal range of motion, supple without lymphadenopathy LUNGS: Breath sounds clear to auscultation bilaterally and equal. No wheezes rales or rhonchi. Normal respiratory rate and effort HEART: Regular rate and rhythm without murmurs ABDOMEN: Soft, nontender, no guarding, no rebound, no masses, no CVAT EXTREMITIES: Normal range of motion, no pitting or edema. No cyanosis. NEUROLOGICAL: Awake, alert, conversing appropriately, moves all extremities spontaneously. PSYCH: Normal mood, normal affect. SKIN: Warm, Dry, normal turgor, no rashes or lesions noted. (BELKYS WINKLER) Course - Laboratory Result Diagrams: 06/22/20 23:47 06/22/20 23:47 <BELKYS WINKLER - Last Filed: 06/23/20 06:52> - Laboratory Result Diagrams: 06/22/20 23:47 06/23/20 06:47 <RAMANA CORONA - Last Filed: 06/23/20 15:38> - Re-evaluation Re-evalutation: 06/23/20 06:08 Patient with constellation of symptoms after change in medication. Low suspicion for ACS and shortness of breath has been present for several days constantly so will rule out with EKG and troponin. Unable to rule out with PERC given patient is 65 but low Wells criteria so will obtain d-dimer for PE rule out. Concerning for possible COVID-19 symptoms. Symptoms may be exacerbated by hyponatremia but unlikely primarily due to hyponatremia, patient endorses decreased p.o. intake since symptom onset. No headache currently, no neck pain or stiffness, no neuro symptoms. Will check CK, Fencl with swab, obtain chest x-ray, and repeat BMP after NS bolus. Will turn patient over to day attending pending additional lab work. If patient feels symptomatically improved after NS then likely discharge with psychiatric and primary care follow-up. If not improved or if sodium decreases will admit to medicine. (BELKYS WINKLER) 06/23/20 15:37 Received signout. Sodium has come up. Dimer negative other results negative stable for discharge per Dr. Winkler plan. (RAMANA CORONA) - Vital Signs Vital signs: Temp Pulse Resp BP Pulse Ox 98 F 74 18 164/72 H 100 06/23/20 09:21 06/23/20 09:21 06/23/20 09:21 06/23/20 09:21 06/23/20 09:21 - Laboratory Laboratory results interpreted by me: 06/22/20 06/22/20 06/23/20 23:47 23:47 06:47 RDW 14.4 H Sodium 125.5 L 130.5 L Chloride 90 L 97 L BUN 5 L 4 L Glucose 113 H - EKG Interpretation by Me Additional EKG results interpreted by me: 06/23/20 06:52 Heart rate 89, sinus rhythm, no significant ST elevations or depressions, no significant T wave abnormalities, normal QTC (BELKYS WINKLER) Discharge <BELKYS WINKLER - Last Filed: 06/23/20 06:52> <RAMANA CORONA - Last Filed: 06/23/20 15:38> - Discharge Clinical Impression: Dehydration Condition: Good Disposition: HOME, SELF-CARE Instructions: Hyponatremia ([facility]), Malaise ([facility]) Referrals: EDDI HUSTON PAMattC [ALLIED HEALTH PROFESSIONAL] - Follow up as needed
[2020-06-23 07:23] LABS: ANION GAP 12 (5-19); BLOOD UREA NITROGEN 4 mg/dL (7-20); CALCIUM 9.2 mg/dL (8.4-10.2); CARBON DIOXIDE 22 mmol/L (22-30); CHLORIDE 97 mmol/L (98-107); GLUCOSE 113 mg/dL (75-110); POTASSIUM 4.5 mmol/L (3.6-5.0)
[2020-06-23 09:21] VITALS: BP 164/72
--- NOTE | 2020-06-23 12:46 | EKG REPORT ---
SEVERITY:- NORMAL ECG - SINUS RHYTHM : Confirmed by: Arturo Wyman MD 23-Jun-2020 12:45:33
== END 2020-06-23 09:33 | disposition home or self-care (01) ==
LOC: ER 22:28
DX: E86.0 Dehydration (principal); R10.9 Unspecified abdominal pain; R11.0 Nausea; R53.1 Weakness; M79.10 Myalgia, unspecified site; R06.02 Shortness of breath; I10 Essential (primary) hypertension; E11.9 Type 2 diabetes mellitus without complications; Z88.8 Allergy status to other drugs, medicaments and biological substances; Z20.828 Contact with and (suspected) exposure to other viral communicable diseases
CPT/HCPCS: 93005; 99284; 96361; 96374; 36415; 82550; 83690; 83735; 84100; 85025; 80048; 80053; 81001; 84484; 85379; 93010; U0003; J2405; J7030; C9803; 87635

== ENCOUNTER 2020-09-02 10:42 | Emergency (ER) | payer MEDICARE, MEDICAID ==
--- NOTE | 2020-09-02 11:53 | RADIOLOGY REPORT (SQ) ---
EXAM DESCRIPTION: CHEST SINGLE VIEW IMAGES COMPLETED DATE/TIME: 09/02/2020 11:42 am REASON FOR STUDY: sobr COMPARISON: 04/04/2016 EXAM PARAMETERS: NUMBER OF VIEWS: One view. TECHNIQUE: Single frontal radiographic view of the chest acquired. RADIATION DOSE: NA LIMITATIONS: None. FINDINGS: LUNGS AND PLEURA: No opacities, masses or pneumothorax. No pleural effusion. MEDIASTINUM AND HILAR STRUCTURES: No masses. Contour normal. HEART AND VASCULAR STRUCTURES: Heart normal in size. Normal vasculature. BONES: No acute findings. HARDWARE: None in the chest. OTHER: No other significant finding. IMPRESSION: NO ACUTE RADIOGRAPHIC FINDING IN THE CHEST. TECHNICAL DOCUMENTATION: JOB ID: [id number] 2010 [employer]- All Rights Reserved Reading location - IP/workstation name: [email or web address]
[2020-09-02 13:07] LABS: ALBUMIN 4.2 g/dL (3.5-5.0); ALKALINE PHOSPHATASE 89 U/L (38-126); ANION GAP 11 (5-19); ASPARTATE AMINO TRANSFERASE 25 U/L (14-36); BILIRUBIN,DIRECT 0.1 mg/dL (0.0-0.4); BILIRUBIN,TOTAL 0.3 mg/dL (0.2-1.3); BLOOD UREA NITROGEN 9 mg/dL (7-20); CALCIUM 9.9 mg/dL (8.4-10.2); CARBON DIOXIDE 25 mmol/L (22-30); CHLORIDE 102 mmol/L (98-107); GLUCOSE 167 mg/dL (75-110); POTASSIUM 4.4 mmol/L (3.6-5.0); TOTAL PROTEIN 7.3 g/dL (6.3-8.2)
[2020-09-02 13:45] LABS: ABSOLUTE BASOPHILS # (AUTO) 0.1 10^3/uL (0.0-0.2); ABSOLUTE LYMPHOCYTES (AUTO) 2.1 10^3/uL (0.5-4.7); ABSOLUTE MONOCYTES (AUTO) 0.8 10^3/uL (0.1-1.4); ABSOLUTE NEUT (AUTO) 6.5 10^3/uL (1.7-8.2); BASOPHILS % (AUTO) 0.9 % (0-2); EOSINOPHILS % (AUTO) 0.5 % (0-6); HEMATOCRIT 37.8 % (36.0-47.0); HEMOGLOBIN 12.6 g/dL (12.0-15.5); LYMPHOCYTES % (AUTO) 22.2 % (13-45); MEAN CORPUSCULAR HEMOGLOBIN 28.5 pg (27.0-33.4); MEAN CORPUSCULAR HGB CONC 33.4 g/dL (32.0-36.0); MEAN CORPUSCULAR VOLUME 85 fl (80-97); MONOCYTES % (AUTO) 8.6 % (3-13); PLATELET COUNT 308 10^3/uL (150-450); RED BLOOD COUNT 4.44 10^6/uL (3.72-5.28); SEGMENTED NEUTROPHILS % (AUTO) 67.8 % (42-78); TOTAL CELLS COUNTED % (AUTO) 100 %; WHITE BLOOD COUNT 9.6 10^3/uL (4.0-10.5)
[2020-09-02] MEDS ORDERED: ACETAMINOPHEN 325 MG TABLET PO ONE (17:23)
[2020-09-02] MEDS ORDERED: ONDANSETRON 4 MG TAB.RAPDIS PO ONE (17:23)
--- NOTE | 2020-09-02 17:45 | PSYCHOLOGICAL NOTE ---
Psych Note - Psych Note Date seen by psych provider: 09/02/20 Time seen by psych provider: 14:17 Psych Note: [id number] Reason for Consult: anxiety and paranoia, romelia Patient is a 65 year old female who presented to the [facility] ED today for anxiety and panic attacks. Patient states she was having a panic attack and was not able to see her PCP due to COVID- type symptoms. Patient denies suicidal and homicidal ideations, plan, and intent. Patient reports a self-diagnosis of dissociative identity disorder. She states her doctors at [facility] will not give her the correct diagnosis. She reports having multiple personalities to include a childlike one and an angry one. She states she can see things coming out of her to include moving her body and making her scream at her neighbor in the past. Patient was trying to be seen by her PCP this morning, but was unable to be seen due to reporting a COVID symptom of shortness of breath. She reports she has been having increased anxiety and was actually having a panic attack this morning. Patient reports medication management with [facility] and states she is compliant with medication regimen. Patient reports being admitted to [facility] 3-4 months ago, but was unable to report why. Patient states she in the [place], but then states God is not ready to take her because he wants her to know the truth (dissociative identity disorder). [id number] Patient reports her primary concern for coming to the ED was her anxiety and she thinks she was having a panic attack. She states her brother drove her to her doctor who would not allow her to come inside and this upset her more. Her brother then drove her to the ED. Patient wants to get the help she needs and wants to see a doctor who can give her the correct diagnosis. Patient denies, again, suicidal ideations, plan, and intent. 1835 Checked back in with patient to discuss discharge and provide patient with resources. Patient reports she remembers why she came to the ED. She came to the ED because her doctor would not see her because of possible COVID symptoms and reports she was scared she had COVID-19 and came to the ED. Patient was alert and oriented to self, person, place, time and situation. Mood was anxious and confused with congruent affect. She denied current SI/HI. Patient did not appear to be responding to internal stimuli as evidenced by fair eye contact and answering questions appropriately when addressed. Thought processes are confused and fixated on getting a diagnosis she has given herself. Conversational speech was within normal limits for rate, tone and prosody. Intellectual abilities are estimated to be average. Attention and concentration is poor. Judgment and impulse control were fair as evidenced by coming to the ED for anxiety, but insight is poor as evidenced by her thoughts not making sense and continuing to discuss her self-diagnosis of dissociative identity disorder instead of the current reason for coming to the ED. Patient has future forward goal oriented thinking and reports wanting to get the diagnosis she feels she has, so she has plans to go to [place] to get it right. Clinical Presentation: manic mood, paranoia, anxiety IVC Criteria per [facility] 122C Dangerous to others Within the relevant past the individual No has inflicted or attempted to inflict or threatened to inflict serious bodily harm on another AND No that there is a reasonable probability that this conduct will be repeated. OR No has acted in such a way as to create a substantial risk of serious bodily harm to another AND No that there is a reasonable probability that this conduct will be repeated. OR No has engaged in extreme destruction of property AND NO that there is a reasonable probability that this conduct will be repeated. Previous episodes of dangerousness to others, when applicable, may be considered when determining reasonable probability of future dangerous conduct. Clear, cogent, and convincing evidence that an individual has committed a homicide in the relevant past is prima facie evidence of dangerousness to others. Dangerous to self Within the relevant past the individual has done any of the following: acted in such a way as to show ALL of the following: No The individual would be unable without care, supervision, and the continued assistance of others not otherwise available, to exercise self- control, judgment, and discretion in the conduct of the individual's daily responsibilities and social relations or to satisfy the individual's need for nourishment, personal or medical care, fdc, or self-protection and safety. AND No There is a reasonable probability of the individual suffering serious physical debilitation within the near future unless adequate treatment is given. A showing of behavior that is grossly irrational, of actions that the individual is unable to control, of behavior that is grossly inappropriate to the situation, or of other evidence of severely impaired insight and judgment shall create a prima facie inference that the individual is unable to care for himself or herself. OR No has attempted suicide or threatened suicide AND No that there is a reasonable probability of suicide unless adequate treatment is given OR No has mutilated himself or herself or attempted to mutilate himself or herself AND No that there is a reasonable probability of serious self-mutilation unless adequate treatment is given. NOTE: Previous episodes of dangerousness to self, when applicable, may be considered when determining reasonable probability of physical debilitation, suicide, or self-mutilation. Impression\\plan: Patient is cleared from acute psychiatric services. Patient is not a danger to self or others. She denies suicidal and homicidal ideations, plans, and intent. She states she was anxious and having a panic attack this morning after not being able to be seen by her doctor and her brother took her to the ED. She became anxious about possible COVID after her primary doctor would not allow her to come in for an appointment due to answering "yes" to shortness of breath. A COVID test was conducted while in the ED and she will be called about results. Patient is recommended to follow up with outpatient services with [facility]. A list of referrals has been given to patient if she prefers to start outpatient services with another provider. Patient is recommended to continue with [facility] until another appointment is established. Patient's brother was contacted at [phone] and he or her son will be picking her up and are both willing to be a part of her plan of care. Patient was given information for mobile crisis for [facility] and [facility]. Patient was informed if her symptoms worsen to go to [facility], call mobile crisis, or return to the ED. Dr. Rodriguez was consulted to care management of this patient; attending physicians in agreement with recommendations and disposition.
--- NOTE | 2020-09-02 18:42 | ER Document Report ---
Entered by ANTONIO LEBLANC SCRIBE 09/02/20 1141 Acting as scribe for:YADIRA TAMAYO MD ED General <KATHI PARKS - Last Filed: 09/02/20 18:15> - General Information source: Patient, [facility] Records TRAVEL OUTSIDE OF THE [place] IN LAST 30 DAYS: No <YADIRA TAMAYO - Last Filed: 09/02/20 18:41> - General Chief Complaint: Shortness Of Breath Stated Complaint: SHORTNESS OF BREATH Primary Care Provider: [facility] [Outside] - Follow up as needed [facility] [Outside] - Follow up as needed SHAHBAZ DON MD [Primary Care Provider] - Follow up as needed Notes: This 65 year old female patient with history of HTN and HLD, presents to the emergency department today with complaints of shortness of breath the past x1 week. Patient states she has been having flashbacks of a traumatic event the past week and called her mental health clinic. Patient states she told them she gets short of breath after her flashbacks and her blood pressure increases, so she was sent to the ED. Patient states she takes her anxiety medication when needed and has not recently taken any. Patient reports history of anxiety, dep ression, bipolar disorder, schizophrenia, and schizoaffective disorder. (YADIRA TAMAYO) - Related Data Allergies/Adverse Reactions: clonazepam [From Klonopin] Allergy (Verified 09/02/20 11:07) haloperidol [From Haldol] Allergy (Verified 09/02/20 11:07) haloperidol lactate [From Haldol] Allergy (Verified 09/02/20 11:07) quetiapine [From Seroquel] Allergy (Verified 09/02/20 11:07) topiramate [From Topamax] Allergy (Verified 09/02/20 11:07) ziprasidone HCl [From Geodon] Allergy (Verified 09/02/20 11:07) ziprasidone mesylate [From Geodon] Allergy (Verified 09/02/20 11:07) cariprazine [From Vraylar] Adverse Reaction (Verified 09/02/20 11:07) Past Medical History - General Information source: Patient, [facility] Records - Social History Smoking Status: Never Smoker Cigarette use (# per day): No Family History: Reviewed & Not Pertinent - Past Medical History Cardiac Medical History: Reports: Hx Hypercholesterolemia, Hx Hypertension GI Medical History: Reports: Hx Irritable Bowel, Hx Colonoscopy Psychiatric Medical History: Reports: Hx Anxiety, Hx Bipolar Disorder, Hx Depression, Hx Schizoaffective Disorder, Hx Schizophrenia Past Surgical History: Reports: Hx Cholecystectomy, Hx Hysterectomy - Immunizations Hx Diphtheria, Pertussis, Tetanus Vaccination: Yes <YADIRA TAMAYO - Last Filed: 09/02/20 18:41> Review of Systems - Review of Systems Constitutional: No symptoms reported EENT: No symptoms reported Cardiovascular: No symptoms reported Respiratory: See HPI, Short of breath Gastrointestinal: No symptoms reported Genitourinary: No symptoms reported Female Genitourinary: No symptoms reported Musculoskeletal: No symptoms reported Skin: No symptoms reported Hematologic/Lymphatic: No symptoms reported Neurological/Psychological: See HPI, Anxiety -: Yes All other systems reviewed and negative <YADIRA TAMAYO - Last Filed: 09/02/20 18:41> Physical Exam - General General appearance: Alert, Anxious - HEENT Head: Normocephalic, Atraumatic Eyes: Normal Pupils: PERRL - Respiratory Respiratory status: No respiratory distress Chest status: Nontender Breath sounds: Normal Chest palpation: Normal - Cardiovascular Rhythm: Regular Heart sounds: Normal auscultation Murmur: No - Abdominal Inspection: Obese Distension: No distension Bowel sounds: Normal Tenderness: Nontender - Extremities General upper extremity: Normal inspection, Normal ROM General lower extremity: Normal inspection, Normal ROM. No: Edema - Neurological Neuro grossly intact: Yes Cognition: Normal Orientation: AAOx4, Disoriented to events Freedom Coma Scale Eye Opening: Spontaneous Freedom Coma Scale Verbal: Oriented Freedom Coma Scale Motor: Obeys Commands Claribel Coma Scale Total: 15 Speech: Normal Motor strength normal: LUE, RUE, LLE, RLE Sensory: Normal - Skin Skin Temperature: Warm Skin Moisture: Dry Skin Color: Normal <YADIRA TAMAYO - Last Filed: 09/02/20 18:41> - Vital signs Vitals: Temp Pulse Resp BP 98.1 F 101 H 18 178/68 H 09/02/20 10:59 09/02/20 10:59 09/02/20 10:59 09/02/20 10:59 - Psychological Notes: Anxious. Pressured speech. (YADIRA TAMAYO) Course - Laboratory Result Diagrams: 09/02/20 13:36 09/02/20 12:30 <KATHI PARKS - Last Filed: 09/02/20 18:15> - Laboratory Result Diagrams: 09/02/20 13:36 09/02/20 12:30 - Diagnostic Test Radiology reviewed: Image reviewed, Reports reviewed <YADIRA TAMAYO - Last Filed: 09/02/20 18:41> - Re-evaluation Re-evalutation: 09/02/20 18:38 Patient resting comfortably at this time. (YADIRA TAMAYO) - Vital Signs Vital signs: Temp Pulse Resp BP Pulse Ox 98.1 F 101 H 18 178/68 H 09/02/20 10:59 09/02/20 10:59 09/02/20 10:59 09/02/20 10:59 09/02/20 18:38 Vital signs show temp 98.1 pulse 101 blood pressure 178/68. Patient has history of hypertension. So patient reports that her blood pressure is anxious and she has been having flashbacks and thoughts and visions entering her mind causing her to become more anxious. (YADIRA TAMAYO) - Laboratory Laboratory results interpreted by me: 09/02/20 09/02/20 09/02/20 12:30 12:30 13:36 RDW 15.0 H Glucose 167 H NT-Pro-B Natriuret Pep 308 H 09/02/20 09/02/20 09/02/20 12:30 12:30 13:36 RDW 15.0 H Glucose 167 H NT-Pro-B Natriuret Pep 308 H 09/02/20 18:39 Patient's blood work abnormality shows a BNP of 308 and a glucose of 167. (YADIRA TAMAYO) - Diagnostic Test Radiology results interpreted by me: 09/02/20 18:39 Chest X-Ray 09/02/20 11:26 IMPRESSION: NO ACUTE RADIOGRAPHIC FINDING IN THE CHEST. Chest x-ray shows no acute radiographic finding on chest. (YADIRA TAMAYO) Discharge <KATHI PARKS - Last Filed: 09/02/20 18:15> <YADIRA TAMAYO - Last Filed: 09/02/20 18:41> - Discharge Clinical Impression: Anxiety Condition: Stable Disposition: HOME, SELF-CARE Instructions: COVID-19 Guidance for Persons Under Investigation Additional Instructions: You have been evaluated by both medical and behavioral health teams for anxiety. You have been deemed appropriate for discharge. While in the emergency department you received the following services/or had access to: Medical scre ening and assessment, nursing services, dietary services, pharmacological services, one-on-one counseling and/or psychotherapy, environmental services, and continuous observation by a patient safety council director. You should continue your home medications as prescribed and follow up with your medication provider at [facility]. Anxiety The physician feels that some of your health problems are being caused by anxiety. Anxiety affects your health in many ways. Anxiety alone can cause palpitations, sweats, chest pains, abdominal pains, shortness of breath, and headaches. It contributes to ulcer disease, high blood pressure, irritable bowel syndrome, and has been shown to cause flare-ups of many other diseases. Anxiety is not a simple disorder to treat. If the anxiety is due to recent life stresses, you may simply need time to "work through" the changes. If the anxiety is due to an underlying unhappiness with yourself or due to psychiatric disturbance, professional help will be needed. Your physician can refer you for further help if needed. Anti-anxiety medication is occasionally given if the stress is acute or if you are having trouble sleeping. Chronic or frequent use of these medications is not a good idea because the body becomes reliant on it, preventing you from dealing with life's normal stresses. Follow up care: You are currently involved in medication management with [facility] and are highly recommended to continue outpatient services. A list of referrals has been given to you if she prefers to start outpatient services with another provider. You are recommended to continue with [facility] until another appointment is established. Your brother, Victor Manuel, was contacted at [phone] and will be picking you up this evening. You have been given a community outpatient referral list to include phone numbers for [facility] and [facility] mobile crisis. If you experience worsening or a significant change in your symptoms, notify the physician immediately, utilize mobile crisis, or return to the Emergency Department at any time for re- evaluation. Continue your same medications as you are doing at this time. No change in your medication. Recommend you understand COVID-19 concerns. You were tested today for COVID-19 because of your shortness of breath. You should self quarantine yourself for the next 2 to 3 days until you receive official notification of your test results that was ordered today. Once you receive your test results further instructions will be given based on your report if it is positive or negative. Forms: Elevated Blood Pressure Referrals: SHAHBAZ DON MD [Primary Care Provider] - Follow up as needed [facility] [Outside] - Follow up as needed [facility] [Outside] - Follow up as needed I personally performed the services described in the documentation, reviewed and edited the documentation which was dictated to the scribe in my presence, and it accurately records my words and actions.
[2020-09-02 18:57] VITALS: BP 155/87
== END 2020-09-02 19:09 | disposition home or self-care (01) ==
LOC: ER 10:42
DX: F41.9 Anxiety disorder, unspecified (principal); F22 Delusional disorders; R06.02 Shortness of breath; R41.0 Disorientation, unspecified; I10 Essential (primary) hypertension; Z88.8 Allergy status to other drugs, medicaments and biological substances; Z20.828 Contact with and (suspected) exposure to other viral communicable diseases
CPT/HCPCS: 99284; 36415; 85025; 80053; 83880; 71045; U0003; A9270 ×2; C9803; 87635; S0119